=== PATIENT | male | born 1980 | race Caucasian/White ===

== ENCOUNTER 2020-03-19 16:00 | Inpatient (IN) | payer SELFPAY ==
[~2020-03-19] VITALS: Ht 172.7 cm; Wt 109.3 kg
[2020-03-19] VITALS (17 sets, daily range): BP systolic 98–161; BP diastolic 46–121
[2020-03-19 16:46] LABS: BASOPHILS % 0.3 % (0.0-2.0); HEMATOCRIT. 42.1 % (42.0-52.0); HEMOGLOBIN. 14.5 g/dL (14.0-18.0); LYMPHOCYTES % 10.3 % (20.0-50.0); MEAN CORPUSCULAR HEMOGLOBIN 29.9 pg (28.0-32.0); MEAN CORPUSCULAR VOLUME 86.6 fL (80.0-94.0); MEAN PLATELET VOLUME 8.8 fl (7.4-10.4); MONOCYTES % 3.1 % (2.0-8.0); NEUTROPHILS % 86.3 % (40.0-76.0); PLATELET 204 x1000/uL (130-400); RED BLOOD CELL COUNT 4.86 mill/uL (4.7-6.1)
[2020-03-19 16:50] LABS: CHLORIDE 101 mEq/L (98-107)
[2020-03-19 16:59] LABS: D-DIMER 0.8 mg/L FEU (<0.50); INR 0.9; PROTHROMBIN TIME 10.1 sec (9.6-11.0)
[2020-03-19] MEDS ORDERED: ENOXAPARIN 100MG/ML SYR SUBCUT ONE (17:00)
[2020-03-19] MEDS ORDERED: ASPIRIN 325MG EC TABLET PO ONE (17:15)
[2020-03-19] MEDS ORDERED: AZITHROMYCIN 500 MG in DEXT 5% WATER 250 ML IV STA (17:21)
[2020-03-19] MEDS ORDERED: GUAIFENESIN 200MG/10ML SUGAR FREE UDC PO PRN (17:30)
[2020-03-19] MEDS ORDERED: LORAZEPAM 0.5MG TABLET PO PRN (17:30)
[2020-03-19] MEDS ORDERED: NITROGLYCERIN 0.4MG TABLET SL SL PRN (17:30)
[2020-03-19] MEDS ORDERED: CLONIDINE 0.1MG TABLET PO PRN (17:30)
[2020-03-19] MEDS ORDERED: TRAMADOL 50MG TABLET PO PRN (17:30)
[2020-03-19] MEDS ORDERED: CEFTRIAXONE 1 G PREMIX 50 ML IV ONE (17:30)
[2020-03-19] MEDS ORDERED: DOCUSATE SODIUM 100MG CAPSULE PO PRN (17:30)
[2020-03-19] MEDS ORDERED: ONDANSETRON HCL 4MG/2ML INJ IV PRN (17:30)
[2020-03-19] MEDS ORDERED: MAGNESIUM/ALUMINUM HYDROXIDE/SIMETHICONE 30ML UDC PO PRN (17:30)
[2020-03-19] MEDS ORDERED: IPRATROPIUM/ALBUTEROL 0.5-3(2.5)MG/3ML NEB ORI PRN (17:30)
[2020-03-19] MEDS ORDERED: POTASSIUM CHLORIDE 20MEQ TABLET SR PO NR (17:50)
[2020-03-19] MEDS ORDERED: GUAIFENESIN/DM 600MG/30MG ER TAB 12HR PO SCH (17:51)
[2020-03-19] MEDS: SODIUM CHLORIDE 0.9% 1,000 ML IV SCH (18:11)
[2020-03-19 18:16] LABS: BG BASE EXCESS 1.3 mmol/L (-2.0-2.0); BG CARBOXYHEMOGLOBIN 0.6 % (0.5-1.5); BG DEOXYHEMOGLOBIN 10.1 % (0.0-5.0); BG HCO3 ACT 25.5 mmol/L (22.0-26.0); BG METHEMOGLOBIN 0.1 % (0.0-1.5); BG OXYGEN SATURATION 89.8 % (92.0-98.5); BG OXYHEMOGLOBIN 89.2 % (94.0-97.0); BG PCO2 38.8 mmHg (35.0-45.0); BG PH 7.435 (7.350-7.450); BG PO2 57.8 mmHg (75.0-100.0); BG SAMPLE SITE RIGHT BRACHIAL; BG TOTAL HEMOGLOBIN 14.8 g/dL (12.0-18.0); BG VENT MODE MASK - NRB
[2020-03-19 19:25] LABS: CLARITY URINE CLEAR (CLEAR); COLOR URINE YELLOW (YELLOW); KETONES URINE NEGATIVE (NEGATIVE); LEUKOCYTE ESTERASE URINE NEGATIVE (NEGATIVE); NITRITE URINE NEGATIVE (NEGATIVE); OCCULT BLOOD URINE 2+ (NEGATIVE); PROTEIN URINE 2+ (NEGATIVE); SPECIFIC GRAVITY URINE 1.012 (1.005-1.030)
[2020-03-19 19:26] LABS: *AMPHETAMINES SCREEN URINE NEGATIVE (NEGATIVE); *BARBITURATES SCREEN URINE NEGATIVE (NEGATIVE)
[2020-03-19 19:27] LABS: *BENZODIAZEPINES SCREEN URINE NEGATIVE (NEGATIVE); *COCAINE SCREEN URINE NEGATIVE (NEGATIVE); METHADONE URINE SCREEN NEGATIVE (NEGATIVE); OPIATES URINE SCREEN NEGATIVE (NEGATIVE); PHENCYCLIDINE URINE SCREEN NEGATIVE (NEGATIVE)
[2020-03-19 19:28] LABS: CANNABINOID URINE SCREEN NEGATIVE (NEGATIVE)
[2020-03-19] MEDS ORDERED: ALBUTEROL 6.7GM HFA INHALER ORI PRN (20:15)
[2020-03-19] MEDS ORDERED: ZOLPIDEM TARTRATE 5MG TABLET PO PRN (21:00)
[2020-03-19] MEDS: GUAIFENESIN/DM 600MG/30MG ER TAB 12HR PO SCH (21:00)
[2020-03-19] MEDS: FAMOTIDINE 20MG TABLET PO SCH (21:00)
[2020-03-19] MEDS: ASCORBIC ACID 500 MG TABLET PO SCH (21:00)
[2020-03-19 21:26] LABS: BG BASE EXCESS -0.1 mmol/L (-2.0-2.0); BG CARBOXYHEMOGLOBIN 0.3 % (0.5-1.5); BG DEOXYHEMOGLOBIN 74.8 % (0.0-5.0); BG FRACTION INSPIRED OXYGEN 100; BG HCO3 ACT 25.9 mmol/L (22.0-26.0); BG METHEMOGLOBIN 1.6 % (0.0-1.5); BG OXYGEN SATURATION 23.8 % (92.0-98.5); BG OXYHEMOGLOBIN 23.3 % (94.0-97.0); BG PCO2 47.3 mmHg (35.0-45.0); BG PH 7.357 (7.350-7.450); BG PO2 < 30.3 mmHg (75.0-100.0); BG SAMPLE SITE RIGHT RADIAL; BG TOTAL HEMOGLOBIN 15.6 g/dL (12.0-18.0); BG VENT MODE MASK - NRB
[2020-03-19] MEDS: METHYLPREDNISOLONE SOD SUCC 40 MG/ML VIAL IV SCH (21:30)
[2020-03-19 23:24] LABS: BG BASE EXCESS -0.4 mmol/L (-2.0-2.0); BG CARBOXYHEMOGLOBIN 0.2 % (0.5-1.5); BG DEOXYHEMOGLOBIN 19.9 % (0.0-5.0); BG FRACTION INSPIRED OXYGEN 100; BG HCO3 ACT 24.3 mmol/L (22.0-26.0); BG METHEMOGLOBIN 0.2 % (0.0-1.5); BG OXYHEMOGLOBIN 79.7 % (94.0-97.0); BG PCO2 40.3 mmHg (35.0-45.0); BG PH 7.398 (7.350-7.450); BG PO2 45.8 mmHg (75.0-100.0); BG SAMPLE SITE RIGHT BRACHIAL; BG TOTAL HEMOGLOBIN 15.1 g/dL (12.0-18.0); BG VENT MODE MASK - NRB
[2020-03-19 23:26] LABS: CREATINE KINASE MB FRACTION 30.8 ng/mL (0.5-3.6)
[2020-03-20] VITALS (87 sets, daily range): BP systolic 81–172; BP diastolic 28–110
[2020-03-20] MEDS ORDERED: MIDAZOLAM HCL 2 MG/2 ML VIAL IV NR ×2 (00:30→01:15)
[2020-03-20] MEDS ORDERED: FENTANYL CITRATE/PF 50MCG/ML 2ML VIAL IV NR (00:30)
[2020-03-20] MEDS: PROPOFOL 10MG/ML 100ML 100 ML IV PRN ×4 (00:50→08:13)
[2020-03-20] MEDS: MIDAZOLAM HCL 100 MG in DEXT 5% WATER 80 ML IV PRN ×2 (01:51→13:58)
[2020-03-20] MEDS: ACETAMINOPHEN 325MG TABLET PO PRN (01:59)
[2020-03-20 02:13] LABS: BG BASE EXCESS -3.7 mmol/L (-2.0-2.0); BG CARBOXYHEMOGLOBIN 0.2 % (0.5-1.5); BG DEOXYHEMOGLOBIN 21.6 % (0.0-5.0); BG FRACTION INSPIRED OXYGEN 100; BG HCO3 ACT 26.1 mmol/L (22.0-26.0); BG METHEMOGLOBIN 0.3 % (0.0-1.5); BG OXYGEN SATURATION 78.3 % (92.0-98.5); BG OXYHEMOGLOBIN 77.9 % (94.0-97.0); BG PCO2 68.9 mmHg (35.0-45.0); BG PH 7.197 (7.350-7.450); BG PO2 51.1 mmHg (75.0-100.0); BG SAMPLE SITE RIGHT BRACHIAL; BG TIDAL VOLUME(mL) 550 mL; BG TOTAL HEMOGLOBIN 15.4 g/dL (12.0-18.0); BG VENT MODE VENT - A/C; BG VENT RATE 20 set
[2020-03-20] MEDS: SODIUM CHLORIDE 0.9% 1,000 ML IV SCH ×2 (03:30→13:50)
[2020-03-20 05:13] LABS: BG BASE EXCESS -1.7 mmol/L (-2.0-2.0); BG CARBOXYHEMOGLOBIN 0.1 % (0.5-1.5); BG DEOXYHEMOGLOBIN 14.2 % (0.0-5.0); BG FRACTION INSPIRED OXYGEN 100; BG HCO3 ACT 24.7 mmol/L (22.0-26.0); BG METHEMOGLOBIN 0.1 % (0.0-1.5); BG OXYGEN SATURATION 85.8 % (92.0-98.5); BG OXYHEMOGLOBIN 85.6 % (94.0-97.0); BG PCO2 48.1 mmHg (35.0-45.0); BG PH 7.328 (7.350-7.450); BG PO2 53.4 mmHg (75.0-100.0); BG SAMPLE SITE LEFT RADIAL; BG TIDAL VOLUME(mL) 550 mL; BG TOTAL HEMOGLOBIN 14.5 g/dL (12.0-18.0); BG VENT MODE VENT - A/C; BG VENT RATE 26 set
[2020-03-20] MEDS: METHYLPREDNISOLONE SOD SUCC 40 MG/ML VIAL IV SCH ×3 (06:00→21:16)
[2020-03-20 07:07] LABS: CREATINE KINASE MB FRACTION 26.1 ng/mL (0.5-3.6)
[2020-03-20 07:34] LABS: CHLORIDE 107 mEq/L (98-107)
[2020-03-20] MEDS ORDERED: ASPIRIN 325MG EC TABLET PO SCH (09:00)
[2020-03-20] MEDS ORDERED: NOREPINEPHRINE 32 MG in DEXT 5% WATER 468 ML IV PRN (09:15)
[2020-03-20] MEDS ORDERED: NOREPINEPHRINE 8 MG in DEXT 5% WATER 242 ML IV PRN (09:30)
[2020-03-20] MEDS: GUAIFENESIN/DM 600MG/30MG ER TAB 12HR PO SCH ×2 (10:18→21:16)
[2020-03-20] MEDS: ASPIRIN 325MG TABLET NG SCH (10:18)
[2020-03-20] MEDS: FAMOTIDINE 20MG TABLET PO SCH ×2 (10:18→21:16)
[2020-03-20] MEDS: ZINC SULFATE 220 MG ( 50 ) CAPSULE PO SCH (10:18)
[2020-03-20] MEDS: ENOXAPARIN 120MG/0.8ML SYR SUBCUT SCH ×2 (10:19→21:16)
[2020-03-20] MEDS: ASCORBIC ACID 500 MG TABLET PO SCH ×2 (10:19→21:16)
[2020-03-20] MEDS: FENTANYL CITRATE/PF 1,000 MCG in SODIUM CHLORIDE 0.9% 80 ML IV PRN ×2 (10:43→17:05)
[2020-03-20] MEDS ORDERED: LIDOCAINE HCL 1% 20ML VIAL (Pyxis) INJ ONE (12:42)
[2020-03-20] MEDS ORDERED: CEFTRIAXONE 1 G PREMIX 50 ML IV SCH (13:00)
[2020-03-20 13:56] LABS: BG BASE EXCESS -1.6 mmol/L (-2.0-2.0); BG DEOXYHEMOGLOBIN 23.7 % (0.0-5.0); BG FRACTION INSPIRED OXYGEN 100; BG OXYGEN SATURATION 76.3 % (92.0-98.5); BG OXYHEMOGLOBIN 76.3 % (94.0-97.0); BG PCO2 49.9 mmHg (35.0-45.0); BG PH 7.318 (7.350-7.450); BG PO2 43.3 mmHg (75.0-100.0); BG SAMPLE SITE LEFT RADIAL; BG TIDAL VOLUME(mL) 450 mL; BG VENT MODE VENT - A/C; BG VENT RATE 30 set
[2020-03-20] MEDS: AZITHROMYCIN 250 MG in DEXT 5% WATER 250 ML IV SCH (14:36)
[2020-03-20] MEDS ORDERED: FUROSEMIDE 40MG/4ML VIAL IVP NR (15:00)
[2020-03-20] MEDS: MONTELUKAST SODIUM 10MG TABLET PO SCH (16:24)
[2020-03-20] MEDS ORDERED: AZITHROMYCIN 500 MG in DEXT 5% WATER 250 ML IV SCH (17:30)
[2020-03-20] MEDS: FENTANYL CITRATE/PF 2,500 MCG in SODIUM CHLORIDE 0.9% 200 ML IV PRN (22:17)
[2020-03-21] VITALS (71 sets, daily range): BP systolic 113–140; BP diastolic 61–79
[2020-03-21] MEDS: MIDAZOLAM HCL 100 MG in DEXT 5% WATER 80 ML IV PRN ×3 (00:11→19:47)
[2020-03-21] MEDS: FENTANYL CITRATE/PF 2,500 MCG in SODIUM CHLORIDE 0.9% 200 ML IV PRN ×3 (05:31→22:40)
[2020-03-21 05:59] LABS: HEMATOCRIT. 41.6 % (42.0-52.0); HEMOGLOBIN. 13.8 g/dL (14.0-18.0); MEAN CORPUSCULAR HEMOGLOBIN 29.5 pg (28.0-32.0); MEAN CORPUSCULAR VOLUME 88.5 fL (80.0-94.0); MEAN PLATELET VOLUME 9.7 fl (7.4-10.4); PLATELET 264 x1000/uL (130-400); RED CELL DISTRIBUTION WIDTH 13.3 % (11.6-14.6)
[2020-03-21 06:13] LABS: CHLORIDE 105 mEq/L (98-107)
[2020-03-21] MEDS: METHYLPREDNISOLONE SOD SUCC 40 MG/ML VIAL IV SCH ×3 (06:16→20:49)
[2020-03-21 06:32] LABS: CREATINE KINASE 3634 IU/L (39-308)
[2020-03-21] MEDS: ASPIRIN 325MG TABLET NG SCH (08:19)
[2020-03-21] MEDS: ASCORBIC ACID 500 MG TABLET PO SCH ×2 (08:19→20:52)
[2020-03-21 08:20] LABS: PLATELET ESTIMATE NORMAL
[2020-03-21] MEDS: FAMOTIDINE 20MG TABLET PO SCH ×2 (08:20→20:49)
[2020-03-21] MEDS: ZINC SULFATE 220 MG ( 50 ) CAPSULE PO SCH (08:20)
[2020-03-21] MEDS: GUAIFENESIN/DM 600MG/30MG ER TAB 12HR PO SCH ×2 (08:20→20:49)
[2020-03-21] MEDS: ENOXAPARIN 120MG/0.8ML SYR SUBCUT SCH ×2 (08:21→20:50)
[2020-03-21 08:26] LABS: BG BASE EXCESS 1.2 mmol/L (-2.0-2.0); BG CARBOXYHEMOGLOBIN 0.3 % (0.5-1.5); BG DEOXYHEMOGLOBIN 7.5 % (0.0-5.0); BG FRACTION INSPIRED OXYGEN 100; BG HCO3 ACT 28.4 mmol/L (22.0-26.0); BG METHEMOGLOBIN 0.1 % (0.0-1.5); BG OXYGEN SATURATION 92.5 % (92.0-98.5); BG OXYHEMOGLOBIN 92.1 % (94.0-97.0); BG PCO2 55.8 mmHg (35.0-45.0); BG PH 7.325 (7.350-7.450); BG PO2 66.5 mmHg (75.0-100.0); BG SAMPLE SITE RIGHT RADIAL; BG TIDAL VOLUME(mL) 450 mL; BG TOTAL HEMOGLOBIN 14.1 g/dL (12.0-18.0); BG VENT MODE VENT - A/C; BG VENT RATE 30 set
[2020-03-21] MEDS ORDERED: ALBUTEROL 6.7GM HFA INHALER ORI SCH (13:00)
[2020-03-21] MEDS: CEFTRIAXONE 1 G PREMIX 50 ML IV SCH (13:32)
[2020-03-21] MEDS: PROPOFOL 10MG/ML 100ML 100 ML IV PRN ×4 (14:48→21:37)
[2020-03-21] MEDS: AZITHROMYCIN 250 MG in DEXT 5% WATER 250 ML IV SCH (15:09)
[2020-03-21] MEDS: ALBUTEROL 6.7GM HFA INHALER ORI SCH (16:10)
[2020-03-21] MEDS: MONTELUKAST SODIUM 10MG TABLET PO SCH (16:46)
[2020-03-22] VITALS (82 sets, daily range): BP systolic 100–129; BP diastolic 50–75
[2020-03-22] MEDS: PROPOFOL 10MG/ML 100ML 100 ML IV PRN ×9 (00:42→23:10)
[2020-03-22] MEDS: MIDAZOLAM HCL 100 MG in DEXT 5% WATER 80 ML IV PRN ×3 (03:09→21:23)
[2020-03-22] MEDS: ALBUTEROL 6.7GM HFA INHALER ORI SCH ×6 (04:10→21:00)
[2020-03-22] MEDS: METHYLPREDNISOLONE SOD SUCC 40 MG/ML VIAL IV SCH (05:55)
[2020-03-22] MEDS: FENTANYL CITRATE/PF 2,500 MCG in SODIUM CHLORIDE 0.9% 200 ML IV PRN ×3 (05:57→22:41)
[2020-03-22 05:59] LABS: MEAN CORPUSCULAR VOLUME 89.7 fL (80.0-94.0); MEAN PLATELET VOLUME 9.1 fl (7.4-10.4); PLATELET 314 x1000/uL (130-400); RED BLOOD CELL COUNT 4.35 mill/uL (4.7-6.1); RED CELL DISTRIBUTION WIDTH 13.3 % (11.6-14.6)
[2020-03-22 06:35] LABS: CHLORIDE 106 mEq/L (98-107)
[2020-03-22 08:57] LABS: BG BASE EXCESS 3.9 mmol/L (-2.0-2.0); BG CARBOXYHEMOGLOBIN 0.3 % (0.5-1.5); BG DEOXYHEMOGLOBIN 0.6 % (0.0-5.0); BG FRACTION INSPIRED OXYGEN 100; BG HCO3 ACT 32.8 mmol/L (22.0-26.0); BG METHEMOGLOBIN 0.3 % (0.0-1.5); BG OXYGEN SATURATION 99.4 % (92.0-98.5); BG OXYHEMOGLOBIN 98.8 % (94.0-97.0); BG PH 7.282 (7.350-7.450); BG PO2 297.1 mmHg (75.0-100.0); BG SAMPLE SITE LEFT RADIAL; BG TIDAL VOLUME(mL) 400 mL; BG TOTAL HEMOGLOBIN 13.4 g/dL (12.0-18.0); BG VENT MODE VENT - PCV; BG VENT RATE 30 set
[2020-03-22] MEDS ORDERED: SODIUM POLYSTYRENE SULFONATE 15 G/60 ML BOT PO NR (09:30)
[2020-03-22] MEDS: ASCORBIC ACID 500 MG TABLET PO SCH ×2 (09:43→20:26)
[2020-03-22] MEDS: ASPIRIN 325MG TABLET NG SCH (09:43)
[2020-03-22] MEDS: ZINC SULFATE 220 MG ( 50 ) CAPSULE PO SCH (09:43)
[2020-03-22] MEDS: ENOXAPARIN 120MG/0.8ML SYR SUBCUT SCH ×2 (09:43→20:27)
[2020-03-22] MEDS: FAMOTIDINE 20MG TABLET PO SCH ×2 (09:43→20:20)
[2020-03-22] MEDS: GUAIFENESIN/DM 600MG/30MG ER TAB 12HR PO SCH ×2 (09:44→20:20)
[2020-03-22 12:06] LABS: PLATELET ESTIMATE NORMAL
[2020-03-22] MEDS: CEFTRIAXONE 1 G PREMIX 50 ML IV SCH (12:32)
[2020-03-22 14:42] LABS: BG CARBOXYHEMOGLOBIN 0.3 % (0.5-1.5); BG DEOXYHEMOGLOBIN 0.7 % (0.0-5.0); BG FRACTION INSPIRED OXYGEN 100; BG HCO3 ACT 29.1 mmol/L (22.0-26.0); BG METHEMOGLOBIN 0.3 % (0.0-1.5); BG OXYGEN SATURATION 99.3 % (92.0-98.5); BG OXYHEMOGLOBIN 98.7 % (94.0-97.0); BG PCO2 56.8 mmHg (35.0-45.0); BG PH 7.328 (7.350-7.450); BG PO2 398.1 mmHg (75.0-100.0); BG SAMPLE SITE RIGHT RADIAL; BG TIDAL VOLUME(mL) 450 mL; BG TOTAL HEMOGLOBIN 13.1 g/dL (12.0-18.0); BG VENT MODE VENT - PCV; BG VENT RATE 30 set
[2020-03-22] MEDS: AZITHROMYCIN 250 MG in DEXT 5% WATER 250 ML IV SCH (14:56)
[2020-03-22] MEDS: MONTELUKAST SODIUM 10MG TABLET PO SCH (17:27)
[2020-03-23] VITALS (86 sets, daily range): BP systolic 111–144; BP diastolic 57–79
[2020-03-23] MEDS: PROPOFOL 10MG/ML 100ML 100 ML IV PRN ×8 (02:27→22:00)
[2020-03-23] MEDS: ALBUTEROL 6.7GM HFA INHALER ORI SCH ×6 (04:48→20:40)
[2020-03-23 05:50] LABS: HEMATOCRIT. 36.3 % (42.0-52.0); HEMOGLOBIN. 12.3 g/dL (14.0-18.0); MEAN CORPUSCULAR HEMOGLOBIN 30.3 pg (28.0-32.0); MEAN CORPUSCULAR VOLUME 89.8 fL (80.0-94.0); MEAN PLATELET VOLUME 8.9 fl (7.4-10.4); PLATELET 299 x1000/uL (130-400); RED BLOOD CELL COUNT 4.05 mill/uL (4.7-6.1); RED CELL DISTRIBUTION WIDTH 13.2 % (11.6-14.6)
[2020-03-23 05:58] LABS: CHLORIDE 108 mEq/L (98-107)
[2020-03-23 06:21] LABS: CREATINE KINASE 1051 IU/L (39-308)
[2020-03-23] MEDS: FENTANYL CITRATE/PF 2,500 MCG in SODIUM CHLORIDE 0.9% 200 ML IV PRN ×3 (08:06→23:31)
[2020-03-23] MEDS: ASPIRIN 325MG TABLET NG SCH (08:09)
[2020-03-23] MEDS: ZINC SULFATE 220 MG ( 50 ) CAPSULE PO SCH (08:09)
[2020-03-23] MEDS: ASCORBIC ACID 500 MG TABLET PO SCH ×2 (08:09→20:21)
[2020-03-23] MEDS: GUAIFENESIN/DM 600MG/30MG ER TAB 12HR PO SCH ×2 (08:09→20:21)
[2020-03-23] MEDS: FAMOTIDINE 20MG TABLET PO SCH ×2 (08:10→20:21)
[2020-03-23] MEDS: ENOXAPARIN 120MG/0.8ML SYR SUBCUT SCH ×2 (08:11→20:25)
[2020-03-23] MEDS: MIDAZOLAM HCL 100 MG in DEXT 5% WATER 80 ML IV PRN ×2 (08:20→13:59)
[2020-03-23 08:29] LABS: PLATELET ESTIMATE NORMAL
[2020-03-23 08:43] LABS: BG BASE EXCESS 6.9 mmol/L (-2.0-2.0); BG CARBOXYHEMOGLOBIN 0.3 % (0.5-1.5); BG DEOXYHEMOGLOBIN 1.9 % (0.0-5.0); BG FRACTION INSPIRED OXYGEN 80; BG HCO3 ACT 33.1 mmol/L (22.0-26.0); BG METHEMOGLOBIN 0.3 % (0.0-1.5); BG OXYGEN SATURATION 98.1 % (92.0-98.5); BG OXYHEMOGLOBIN 97.5 % (94.0-97.0); BG PCO2 54.1 mmHg (35.0-45.0); BG PH 7.404 (7.350-7.450); BG PO2 123.6 mmHg (75.0-100.0); BG SAMPLE SITE RIGHT RADIAL; BG TIDAL VOLUME(mL) 450 mL; BG TOTAL HEMOGLOBIN 12.7 g/dL (12.0-18.0); BG VENT MODE VENT - PCV; BG VENT RATE 30 set
[2020-03-23] MEDS ORDERED: METHYLPREDNISOLONE SOD SUCC 40 MG/ML VIAL IV SCH (09:00)
[2020-03-23] MEDS ORDERED: DEXTROSE 50% WATER 50ML SYRINGE IV PRN ×2 (09:30)
[2020-03-23] MEDS: BLOOD SUGAR DIAGNOSTIC STRIP TEST SCH ×3 (11:22→23:30)
[2020-03-23] MEDS: CEFTRIAXONE 1,000 MG in DEXTROSE 5% WATER 50 ML IV SCH (12:11)
[2020-03-23] MEDS: INSULIN LISPRO 100 UNITS/ML SUBCUT SCH ×3 (12:12→23:42)
[2020-03-23] MEDS: ACETAMINOPHEN 325MG TABLET PO PRN (12:34)
[2020-03-23] MEDS: AZITHROMYCIN 250 MG in DEXT 5% WATER 250 ML IV SCH (13:39)
[2020-03-23] MEDS: MONTELUKAST SODIUM 10MG TABLET PO SCH (17:08)
[2020-03-23] MEDS: METHYLPREDNISOLONE SOD SUCC 40 MG/ML VIAL IV SCH (20:22)
[2020-03-24] VITALS (96 sets, daily range): BP systolic 84–150; BP diastolic 57–73
[2020-03-24] MEDS: ACETAMINOPHEN 325MG TABLET PO PRN ×2 (00:02→15:46)
[2020-03-24] MEDS: MIDAZOLAM HCL 100 MG in DEXT 5% WATER 80 ML IV PRN ×3 (00:31→20:50)
[2020-03-24] MEDS: ALBUTEROL 6.7GM HFA INHALER ORI SCH ×6 (00:50→21:06)
[2020-03-24] MEDS: PROPOFOL 10MG/ML 100ML 100 ML IV PRN ×4 (00:54→10:08)
[2020-03-24 05:23] LABS: BASOPHILS % 0.3 % (0.0-2.0); EOSINOPHILS % 0.3 % (0.0-5.0); HEMATOCRIT. 35.5 % (42.0-52.0); HEMOGLOBIN. 12.2 g/dL (14.0-18.0); MEAN CORPUSCULAR HEMOGLOBIN 30.8 pg (28.0-32.0); MEAN CORPUSCULAR VOLUME 89.9 fL (80.0-94.0); MEAN PLATELET VOLUME 9.1 fl (7.4-10.4); MONOCYTES % 2.5 % (2.0-8.0); NEUTROPHILS % 88.9 % (40.0-76.0); PLATELET 279 x1000/uL (130-400); RED BLOOD CELL COUNT 3.95 mill/uL (4.7-6.1); RED CELL DISTRIBUTION WIDTH 13.5 % (11.6-14.6)
[2020-03-24] MEDS: BLOOD SUGAR DIAGNOSTIC STRIP TEST SCH ×4 (05:36→23:54)
[2020-03-24] MEDS: INSULIN LISPRO 100 UNITS/ML SUBCUT SCH ×3 (05:55→18:04)
[2020-03-24] MEDS: FENTANYL CITRATE/PF 2,500 MCG in SODIUM CHLORIDE 0.9% 200 ML IV PRN ×2 (08:31→17:37)
[2020-03-24] MEDS: ASCORBIC ACID 500 MG TABLET PO SCH ×2 (08:31→20:23)
[2020-03-24] MEDS: FAMOTIDINE 20MG TABLET PO SCH ×2 (08:31→20:23)
[2020-03-24] MEDS: GUAIFENESIN/DM 600MG/30MG ER TAB 12HR PO SCH ×2 (08:31→20:23)
[2020-03-24] MEDS: ASPIRIN 325MG TABLET NG SCH (08:31)
[2020-03-24] MEDS: METHYLPREDNISOLONE SOD SUCC 40 MG/ML VIAL IV SCH ×2 (08:31→20:23)
[2020-03-24] MEDS: ENOXAPARIN 120MG/0.8ML SYR SUBCUT SCH ×2 (08:32→20:24)
[2020-03-24] MEDS: ZINC SULFATE 220 MG ( 50 ) CAPSULE PO SCH (08:32)
[2020-03-24 09:14] LABS: CHLORIDE 105 mEq/L (98-107)
[2020-03-24 09:54] LABS: BG BASE EXCESS 6.2 mmol/L (-2.0-2.0); BG CARBOXYHEMOGLOBIN 0.2 % (0.5-1.5); BG DEOXYHEMOGLOBIN 8.6 % (0.0-5.0); BG FRACTION INSPIRED OXYGEN 60; BG HCO3 ACT 32.3 mmol/L (22.0-26.0); BG METHEMOGLOBIN 0.7 % (0.0-1.5); BG OXYGEN SATURATION 91.3 % (92.0-98.5); BG OXYHEMOGLOBIN 90.5 % (94.0-97.0); BG PCO2 52.3 mmHg (35.0-45.0); BG PH 7.408 (7.350-7.450); BG SAMPLE SITE RIGHT RADIAL; BG TIDAL VOLUME(mL) 450 mL; BG TOTAL HEMOGLOBIN 13.4 g/dL (12.0-18.0); BG VENT MODE VENT - PCV; BG VENT RATE 30 set
[2020-03-24] MEDS: CEFTRIAXONE 1,000 MG in DEXTROSE 5% WATER 50 ML IV SCH (12:10)
[2020-03-24] MEDS: MONTELUKAST SODIUM 10MG TABLET PO SCH (16:32)
[2020-03-25] VITALS (96 sets, daily range): BP systolic 112–136; BP diastolic 59–80
[2020-03-25] MEDS: INSULIN LISPRO 100 UNITS/ML SUBCUT SCH ×5 (00:43→23:20)
[2020-03-25] MEDS: FENTANYL CITRATE/PF 2,500 MCG in SODIUM CHLORIDE 0.9% 200 ML IV PRN ×3 (01:39→18:47)
[2020-03-25] MEDS: BLOOD SUGAR DIAGNOSTIC STRIP TEST SCH ×3 (05:45→18:00)
[2020-03-25] MEDS: MIDAZOLAM HCL 100 MG in DEXT 5% WATER 80 ML IV PRN ×2 (07:53→18:46)
[2020-03-25] MEDS: ASCORBIC ACID 500 MG TABLET PO SCH ×2 (09:00→20:14)
[2020-03-25] MEDS: ENOXAPARIN 120MG/0.8ML SYR SUBCUT SCH ×2 (09:00→20:14)
[2020-03-25] MEDS: GUAIFENESIN/DM 600MG/30MG ER TAB 12HR PO SCH ×2 (09:26→20:14)
[2020-03-25] MEDS: METHYLPREDNISOLONE SOD SUCC 40 MG/ML VIAL IV SCH ×2 (09:27→20:14)
[2020-03-25] MEDS: ASPIRIN 325MG TABLET NG SCH (09:27)
[2020-03-25] MEDS: ACETAMINOPHEN 325MG TABLET PO PRN ×2 (09:27→18:26)
[2020-03-25] MEDS: FAMOTIDINE 20MG TABLET PO SCH ×2 (09:27→20:14)
[2020-03-25] MEDS: ZINC SULFATE 220 MG ( 50 ) CAPSULE PO SCH (09:28)
[2020-03-25 09:45] LABS: BG BASE EXCESS 6.9 mmol/L (-2.0-2.0); BG DEOXYHEMOGLOBIN 4.1 % (0.0-5.0); BG FRACTION INSPIRED OXYGEN 60; BG HCO3 ACT 32.7 mmol/L (22.0-26.0); BG METHEMOGLOBIN 0.2 % (0.0-1.5); BG OXYGEN SATURATION 95.9 % (92.0-98.5); BG OXYHEMOGLOBIN 95.7 % (94.0-97.0); BG PCO2 51.8 mmHg (35.0-45.0); BG PH 7.418 (7.350-7.450); BG PO2 81.7 mmHg (75.0-100.0); BG SAMPLE SITE RIGHT BRACHIAL; BG TIDAL VOLUME(mL) 450 mL; BG TOTAL HEMOGLOBIN 12.5 g/dL (12.0-18.0); BG VENT MODE PRVC; BG VENT RATE 30 set
[2020-03-25] MEDS: CEFTRIAXONE 1,000 MG in DEXTROSE 5% WATER 50 ML IV SCH (12:56)
[2020-03-25] MEDS: MONTELUKAST SODIUM 10MG TABLET PO SCH (18:26)
[2020-03-25] MEDS: ALBUTEROL 6.7GM HFA INHALER ORI SCH (20:25)
[2020-03-26] VITALS (96 sets, daily range): BP systolic 106–175; BP diastolic 54–94
[2020-03-26] MEDS: ALBUTEROL 6.7GM HFA INHALER ORI SCH ×5 (00:20→16:10)
[2020-03-26] MEDS: FENTANYL CITRATE/PF 2,500 MCG in SODIUM CHLORIDE 0.9% 200 ML IV PRN ×3 (03:35→19:00)
[2020-03-26] MEDS: BLOOD SUGAR DIAGNOSTIC STRIP TEST SCH ×4 (05:05→18:00)
[2020-03-26 05:15] LABS: HEMATOCRIT. 36.9 % (42.0-52.0); HEMOGLOBIN. 12.1 g/dL (14.0-18.0); MEAN CORPUSCULAR HEMOGLOBIN 29.7 pg (28.0-32.0); MEAN PLATELET VOLUME 8.7 fl (7.4-10.4); PLATELET 333 x1000/uL (130-400); RED BLOOD CELL COUNT 4.09 mill/uL (4.7-6.1); RED CELL DISTRIBUTION WIDTH 13.4 % (11.6-14.6)
[2020-03-26 05:19] LABS: CHLORIDE 109 mEq/L (98-107)
[2020-03-26 05:29] LABS: CREATINE KINASE 940 IU/L (39-308)
[2020-03-26] MEDS: INSULIN LISPRO 100 UNITS/ML SUBCUT SCH ×3 (05:38→18:00)
[2020-03-26] MEDS: MIDAZOLAM HCL 100 MG in DEXT 5% WATER 80 ML IV PRN ×2 (06:30→15:52)
[2020-03-26] MEDS: GUAIFENESIN/DM 600MG/30MG ER TAB 12HR PO SCH ×2 (08:16→20:48)
[2020-03-26] MEDS: METHYLPREDNISOLONE SOD SUCC 40 MG/ML VIAL IV SCH ×2 (08:16→20:48)
[2020-03-26] MEDS: ENOXAPARIN 120MG/0.8ML SYR SUBCUT SCH ×2 (08:16→20:50)
[2020-03-26] MEDS: FAMOTIDINE 20MG TABLET PO SCH ×2 (08:17→20:48)
[2020-03-26] MEDS: ZINC SULFATE 220 MG ( 50 ) CAPSULE PO SCH (08:17)
[2020-03-26] MEDS: ASCORBIC ACID 500 MG TABLET PO SCH ×2 (08:18→20:48)
[2020-03-26] MEDS: ACETAMINOPHEN 325MG TABLET PO PRN ×3 (08:18→21:23)
[2020-03-26] MEDS: ASPIRIN 325MG TABLET NG SCH (08:18)
[2020-03-26 10:07] LABS: BG BASE EXCESS 5.2 mmol/L (-2.0-2.0); BG CARBOXYHEMOGLOBIN 0.3 % (0.5-1.5); BG DEOXYHEMOGLOBIN 2.2 % (0.0-5.0); BG FRACTION INSPIRED OXYGEN 70; BG HCO3 ACT 31.3 mmol/L (22.0-26.0); BG METHEMOGLOBIN 0.1 % (0.0-1.5); BG OXYGEN SATURATION 97.8 % (92.0-98.5); BG OXYHEMOGLOBIN 97.4 % (94.0-97.0); BG PCO2 52.3 mmHg (35.0-45.0); BG PH 7.395 (7.350-7.450); BG PO2 104.6 mmHg (75.0-100.0); BG SAMPLE SITE RIGHT RADIAL; BG TIDAL VOLUME(mL) 450 mL; BG TOTAL HEMOGLOBIN 12.7 g/dL (12.0-18.0); BG VENT MODE PRVC; BG VENT RATE 30 set
[2020-03-26 12:57] LABS: PLATELET ESTIMATE NORMAL
[2020-03-26] MEDS: MONTELUKAST SODIUM 10MG TABLET PO SCH (17:00)
[2020-03-27] VITALS (96 sets, daily range): BP systolic 108–130; BP diastolic 57–82
[2020-03-27] MEDS: BLOOD SUGAR DIAGNOSTIC STRIP TEST SCH ×4 (00:45→18:00)
[2020-03-27] MEDS: ACETAMINOPHEN 325MG TABLET PO PRN ×2 (00:52→05:59)
[2020-03-27] MEDS: INSULIN LISPRO 100 UNITS/ML SUBCUT SCH ×4 (00:52→18:36)
[2020-03-27] MEDS: MIDAZOLAM HCL 100 MG in DEXT 5% WATER 80 ML IV PRN ×3 (01:00→16:11)
[2020-03-27] MEDS: FENTANYL CITRATE/PF 2,500 MCG in SODIUM CHLORIDE 0.9% 200 ML IV PRN ×2 (04:09→20:43)
[2020-03-27] MEDS: ALBUTEROL 6.7GM HFA INHALER ORI SCH ×4 (08:00→20:55)
[2020-03-27] MEDS: GUAIFENESIN/DM 600MG/30MG ER TAB 12HR PO SCH ×2 (08:27→20:44)
[2020-03-27] MEDS: METHYLPREDNISOLONE SOD SUCC 40 MG/ML VIAL IV SCH ×2 (08:27→20:55)
[2020-03-27] MEDS: ASPIRIN 325MG TABLET NG SCH (08:27)
[2020-03-27] MEDS: FAMOTIDINE 20MG TABLET PO SCH ×2 (08:28→20:55)
[2020-03-27] MEDS: ZINC SULFATE 220 MG ( 50 ) CAPSULE PO SCH (08:28)
[2020-03-27] MEDS: ASCORBIC ACID 500 MG TABLET PO SCH ×2 (08:28→20:55)
[2020-03-27] MEDS: ENOXAPARIN 120MG/0.8ML SYR SUBCUT SCH ×2 (08:29→20:54)
[2020-03-27 09:34] LABS: BG BASE EXCESS 2.3 mmol/L (-2.0-2.0); BG CARBOXYHEMOGLOBIN 0.3 % (0.5-1.5); BG DEOXYHEMOGLOBIN 2.2 % (0.0-5.0); BG FRACTION INSPIRED OXYGEN 70; BG HCO3 ACT 28.7 mmol/L (22.0-26.0); BG METHEMOGLOBIN 0.2 % (0.0-1.5); BG OXYGEN SATURATION 97.8 % (92.0-98.5); BG OXYHEMOGLOBIN 97.3 % (94.0-97.0); BG PCO2 52.5 mmHg (35.0-45.0); BG PH 7.356 (7.350-7.450); BG PO2 113.7 mmHg (75.0-100.0); BG SAMPLE SITE RIGHT RADIAL; BG TIDAL VOLUME(mL) 450 mL; BG TOTAL HEMOGLOBIN 12.8 g/dL (12.0-18.0); BG VENT MODE VENT - PCV; BG VENT RATE 30 set
[2020-03-27] MEDS: MONTELUKAST SODIUM 10MG TABLET PO SCH (17:00)
[2020-03-28] VITALS (92 sets, daily range): BP systolic 100–133; BP diastolic 39–93
[2020-03-28] MEDS: BLOOD SUGAR DIAGNOSTIC STRIP TEST SCH ×5 (00:25→23:19)
[2020-03-28] MEDS: ALBUTEROL 6.7GM HFA INHALER ORI SCH ×6 (00:25→15:40)
[2020-03-28] MEDS: INSULIN LISPRO 100 UNITS/ML SUBCUT SCH ×5 (00:26→23:21)
[2020-03-28] MEDS: MIDAZOLAM HCL 100 MG in DEXT 5% WATER 80 ML IV PRN ×3 (00:49→18:23)
[2020-03-28 06:16] LABS: BASOPHILS % 0.2 % (0.0-2.0); EOSINOPHILS % 0.3 % (0.0-5.0); HEMATOCRIT. 38.2 % (42.0-52.0); HEMOGLOBIN. 12.7 g/dL (14.0-18.0); LYMPHOCYTES % 9.2 % (20.0-50.0); MEAN CORPUSCULAR HEMOGLOBIN 29.5 pg (28.0-32.0); MEAN CORPUSCULAR VOLUME 88.7 fL (80.0-94.0); MEAN PLATELET VOLUME 9.5 fl (7.4-10.4); MONOCYTES % 4.6 % (2.0-8.0); NEUTROPHILS % 85.7 % (40.0-76.0); PLATELET 328 x1000/uL (130-400); RED BLOOD CELL COUNT 4.31 mill/uL (4.7-6.1); RED CELL DISTRIBUTION WIDTH 13.3 % (11.6-14.6)
[2020-03-28 06:39] LABS: CHLORIDE 105 mEq/L (98-107)
[2020-03-28 06:48] LABS: C REACTIVE PROTEIN QUANT 8.2 mg/L (0.0-3.0); CREATINE KINASE 393 IU/L (39-308)
[2020-03-28] MEDS ORDERED: FENTANYL CITRATE/PF 2,500 MCG in DEXT 5% WATER 200 ML IV PRN (08:45)
[2020-03-28 08:48] LABS: BG BASE EXCESS 2.8 mmol/L (-2.0-2.0); BG CARBOXYHEMOGLOBIN 0.3 % (0.5-1.5); BG DEOXYHEMOGLOBIN 1.3 % (0.0-5.0); BG FRACTION INSPIRED OXYGEN 60; BG HCO3 ACT 27.9 mmol/L (22.0-26.0); BG METHEMOGLOBIN 0.3 % (0.0-1.5); BG OXYGEN SATURATION 98.7 % (92.0-98.5); BG OXYHEMOGLOBIN 98.1 % (94.0-97.0); BG PCO2 45.1 mmHg (35.0-45.0); BG PO2 150.2 mmHg (75.0-100.0); BG SAMPLE SITE RIGHT RADIAL; BG TIDAL VOLUME(mL) 450 mL; BG TOTAL HEMOGLOBIN 12.7 g/dL (12.0-18.0); BG VENT MODE VENT - PCV; BG VENT RATE 30 set
[2020-03-28] MEDS: GUAIFENESIN/DM 600MG/30MG ER TAB 12HR PO SCH ×2 (09:00→19:43)
[2020-03-28] MEDS: ASCORBIC ACID 500 MG TABLET PO SCH ×2 (09:47→21:18)
[2020-03-28] MEDS: ASPIRIN 325MG TABLET NG SCH (09:47)
[2020-03-28] MEDS: FAMOTIDINE 20MG TABLET PO SCH ×2 (09:47→21:17)
[2020-03-28] MEDS: METHYLPREDNISOLONE SOD SUCC 40 MG/ML VIAL IV SCH (09:47)
[2020-03-28] MEDS: ENOXAPARIN 120MG/0.8ML SYR SUBCUT SCH ×2 (09:48→21:17)
[2020-03-28] MEDS: ZINC SULFATE 220 MG ( 50 ) CAPSULE PO SCH (09:55)
[2020-03-28] MEDS: ACETAMINOPHEN 650MG/20.3ML UDC NG PRN (13:15)
[2020-03-28] MEDS: MONTELUKAST SODIUM 10MG TABLET PO SCH (18:22)
[2020-03-29] VITALS (91 sets, daily range): BP systolic 108–143; BP diastolic 57–82
[2020-03-29] MEDS: ALBUTEROL 6.7GM HFA INHALER ORI SCH ×2 (00:25→20:35)
[2020-03-29] MEDS: MIDAZOLAM HCL 100 MG in DEXT 5% WATER 80 ML IV PRN ×3 (03:28→18:04)
[2020-03-29] MEDS: FENTANYL CITRATE/PF 2,500 MCG in SODIUM CHLORIDE 0.9% 200 ML IV PRN ×2 (05:28→18:50)
[2020-03-29] MEDS: BLOOD SUGAR DIAGNOSTIC STRIP TEST SCH ×3 (05:48→18:45)
[2020-03-29] MEDS: INSULIN LISPRO 100 UNITS/ML SUBCUT SCH ×3 (05:49→18:46)
[2020-03-29] MEDS: ASCORBIC ACID 500 MG TABLET PO SCH ×2 (08:08→20:36)
[2020-03-29] MEDS: ZINC SULFATE 220 MG ( 50 ) CAPSULE PO SCH (08:08)
[2020-03-29] MEDS: FAMOTIDINE 20MG TABLET PO SCH ×2 (08:08→20:36)
[2020-03-29] MEDS: GUAIFENESIN/DM 600MG/30MG ER TAB 12HR PO SCH ×2 (08:08→20:36)
[2020-03-29] MEDS: METHYLPREDNISOLONE SOD SUCC 40 MG/ML VIAL IV SCH (08:08)
[2020-03-29] MEDS: ASPIRIN 325MG TABLET NG SCH (08:08)
[2020-03-29] MEDS: ENOXAPARIN 120MG/0.8ML SYR SUBCUT SCH ×2 (08:09→20:36)
[2020-03-29 10:12] LABS: BG BASE EXCESS 4.7 mmol/L (-2.0-2.0); BG CARBOXYHEMOGLOBIN 0.1 % (0.5-1.5); BG DEOXYHEMOGLOBIN 1.5 % (0.0-5.0); BG FRACTION INSPIRED OXYGEN 55; BG HCO3 ACT 28.9 mmol/L (22.0-26.0); BG METHEMOGLOBIN 0.1 % (0.0-1.5); BG OXYGEN SATURATION 98.5 % (92.0-98.5); BG OXYHEMOGLOBIN 98.3 % (94.0-97.0); BG PCO2 41.5 mmHg (35.0-45.0); BG PH 7.461 (7.350-7.450); BG SAMPLE SITE RIGHT RADIAL; BG TIDAL VOLUME(mL) 450 mL; BG VENT MODE VENT- PRVC; BG VENT RATE 30 set
[2020-03-29 11:17] LABS: HEMATOCRIT. 36.9 % (42.0-52.0); HEMOGLOBIN. 12.4 g/dL (14.0-18.0); MEAN CORPUSCULAR HEMOGLOBIN 29.4 pg (28.0-32.0); MEAN CORPUSCULAR VOLUME 87.8 fL (80.0-94.0); MEAN PLATELET VOLUME 9.4 fl (7.4-10.4); PLATELET 294 x1000/uL (130-400); RED CELL DISTRIBUTION WIDTH 12.7 % (11.6-14.6)
[2020-03-29 11:59] LABS: CHLORIDE 105 mEq/L (98-107)
[2020-03-29 13:01] LABS: PLATELET ESTIMATE NORMAL
[2020-03-29] MEDS ORDERED: DOCUSATE SODIUM 100MG CAPSULE PO PRN (15:45)
[2020-03-29] MEDS ORDERED: DOCUSATE SODIUM SUGAR FREE 100MG/10ML UDC NG PRN (16:00)
[2020-03-29] MEDS: MONTELUKAST SODIUM 10MG TABLET PO SCH (16:10)
[2020-03-30] VITALS (59 sets, daily range): BP systolic 102–133; BP diastolic 62–82
[2020-03-30] MEDS: BLOOD SUGAR DIAGNOSTIC STRIP TEST SCH ×5 (00:14→23:34)
[2020-03-30] MEDS: MIDAZOLAM HCL 100 MG in DEXT 5% WATER 80 ML IV PRN ×3 (00:19→21:32)
[2020-03-30] MEDS: ALBUTEROL 6.7GM HFA INHALER ORI SCH ×7 (00:30→21:20)
[2020-03-30] MEDS: ACETAMINOPHEN 325MG TABLET PO PRN ×2 (04:07→20:59)
[2020-03-30] MEDS: FENTANYL CITRATE/PF 2,500 MCG in SODIUM CHLORIDE 0.9% 200 ML IV PRN ×2 (05:08→23:54)
[2020-03-30 06:06] LABS: CHLORIDE 104 mEq/L (98-107)
[2020-03-30 06:14] LABS: BASOPHILS % 0.3 % (0.0-2.0); EOSINOPHILS % 0.7 % (0.0-5.0); HEMATOCRIT. 36.4 % (42.0-52.0); HEMOGLOBIN. 12.1 g/dL (14.0-18.0); LYMPHOCYTES % 8.3 % (20.0-50.0); MEAN CORPUSCULAR HEMOGLOBIN 29.5 pg (28.0-32.0); MEAN CORPUSCULAR VOLUME 88.9 fL (80.0-94.0); MEAN PLATELET VOLUME 10.4 fl (7.4-10.4); MONOCYTES % 6.6 % (2.0-8.0); NEUTROPHILS % 84.1 % (40.0-76.0); PLATELET 296 x1000/uL (130-400); RED CELL DISTRIBUTION WIDTH 13.3 % (11.6-14.6)
[2020-03-30] MEDS: INSULIN LISPRO 100 UNITS/ML SUBCUT SCH ×5 (06:34→23:42)
[2020-03-30 08:45] LABS: BG BASE EXCESS 0.1 mmol/L (-2.0-2.0); BG CARBOXYHEMOGLOBIN 0.3 % (0.5-1.5); BG DEOXYHEMOGLOBIN 3.2 % (0.0-5.0); BG FRACTION INSPIRED OXYGEN 50; BG HCO3 ACT 24.9 mmol/L (22.0-26.0); BG METHEMOGLOBIN 0.3 % (0.0-1.5); BG OXYGEN SATURATION 96.8 % (92.0-98.5); BG OXYHEMOGLOBIN 96.2 % (94.0-97.0); BG PCO2 41.1 mmHg (35.0-45.0); BG PH 7.401 (7.350-7.450); BG PO2 88.3 mmHg (75.0-100.0); BG SAMPLE SITE RIGHT RADIAL; BG TIDAL VOLUME(mL) 450 mL; BG TOTAL HEMOGLOBIN 12.1 g/dL (12.0-18.0); BG VENT MODE VENT- PRVC; BG VENT RATE 26 set
[2020-03-30] MEDS: ASCORBIC ACID 500 MG TABLET PO SCH ×2 (08:48→23:56)
[2020-03-30] MEDS: ZINC SULFATE 220 MG ( 50 ) CAPSULE PO SCH (08:48)
[2020-03-30] MEDS: FAMOTIDINE 20MG TABLET PO SCH ×2 (08:48→20:59)
[2020-03-30] MEDS: ENOXAPARIN 120MG/0.8ML SYR SUBCUT SCH ×2 (08:48→20:54)
[2020-03-30] MEDS: GUAIFENESIN/DM 600MG/30MG ER TAB 12HR PO SCH ×2 (08:48→20:54)
[2020-03-30] MEDS: METHYLPREDNISOLONE SOD SUCC 40 MG/ML VIAL IV SCH (08:48)
[2020-03-30] MEDS: ASPIRIN 325MG TABLET NG SCH (08:48)
[2020-03-30] MEDS ORDERED: SODIUM CHLORIDE 0.9% IRRIG SOLUTION 1000ML IR ONE (09:00)
[2020-03-30] MEDS ORDERED: POTASSIUM CHLORIDE 20MEQ TABLET SR PO NR (09:15)
[2020-03-30] MEDS ORDERED: BISACODYL 10MG SUPP PR PRN (13:30)
[2020-03-30] MEDS: MONTELUKAST SODIUM 10MG TABLET PO SCH (17:00)
[2020-03-31] VITALS (61 sets, daily range): BP systolic 97–130; BP diastolic 61–83
[2020-03-31] MEDS: ALBUTEROL 6.7GM HFA INHALER ORI SCH ×3 (01:10→20:15)
[2020-03-31] MEDS: ACETAMINOPHEN 325MG TABLET PO PRN (05:04)
[2020-03-31 05:36] LABS: BASOPHILS % 0.2 % (0.0-2.0); EOSINOPHILS % 0.8 % (0.0-5.0); HEMOGLOBIN. 11.7 g/dL (14.0-18.0); MEAN CORPUSCULAR HEMOGLOBIN 29.5 pg (28.0-32.0); MEAN CORPUSCULAR VOLUME 88.4 fL (80.0-94.0); MEAN PLATELET VOLUME 10.3 fl (7.4-10.4); MONOCYTES % 6.8 % (2.0-8.0); NEUTROPHILS % 81.2 % (40.0-76.0); PLATELET 284 x1000/uL (130-400); RED BLOOD CELL COUNT 3.96 mill/uL (4.7-6.1); RED CELL DISTRIBUTION WIDTH 12.7 % (11.6-14.6)
[2020-03-31 05:48] LABS: CHLORIDE 105 mEq/L (98-107)
[2020-03-31] MEDS: INSULIN LISPRO 100 UNITS/ML SUBCUT SCH ×3 (06:00→17:32)
[2020-03-31] MEDS: BLOOD SUGAR DIAGNOSTIC STRIP TEST SCH ×4 (06:03→23:21)
[2020-03-31] MEDS: MIDAZOLAM HCL 100 MG in DEXT 5% WATER 80 ML IV PRN (06:27)
[2020-03-31 08:59] LABS: BG BASE EXCESS 4.2 mmol/L (-2.0-2.0); BG CARBOXYHEMOGLOBIN 0.6 % (0.5-1.5); BG DEOXYHEMOGLOBIN 3.3 % (0.0-5.0); BG FRACTION INSPIRED OXYGEN 50; BG METHEMOGLOBIN 0.1 % (0.0-1.5); BG OXYGEN SATURATION 96.7 % (92.0-98.5); BG PCO2 49.7 mmHg (35.0-45.0); BG PH 7.398 (7.350-7.450); BG PO2 86.2 mmHg (75.0-100.0); BG SAMPLE SITE RIGHT RADIAL; BG TIDAL VOLUME(mL) 450 mL; BG TOTAL HEMOGLOBIN 12.8 g/dL (12.0-18.0); BG VENT MODE VENT- PRVC; BG VENT RATE 22 set
[2020-03-31] MEDS: ASCORBIC ACID 500 MG TABLET PO SCH ×2 (09:00→21:38)
[2020-03-31] MEDS: METHYLPREDNISOLONE SOD SUCC 40 MG/ML VIAL IV SCH (09:00)
[2020-03-31] MEDS: ENOXAPARIN 120MG/0.8ML SYR SUBCUT SCH ×2 (09:00→21:38)
[2020-03-31] MEDS: ZINC SULFATE 220 MG ( 50 ) CAPSULE PO SCH (09:00)
[2020-03-31] MEDS: FAMOTIDINE 20MG TABLET PO SCH ×2 (09:00→21:38)
[2020-03-31] MEDS: ASPIRIN 325MG TABLET NG SCH (09:00)
[2020-03-31] MEDS: GUAIFENESIN/DM 600MG/30MG ER TAB 12HR PO SCH ×2 (09:00→21:38)
[2020-03-31] MEDS ORDERED: KCL 20MEQ/100ML PREMIX 100 ML IV ONE (09:00)
[2020-03-31] MEDS: MONTELUKAST SODIUM 10MG TABLET PO SCH (17:34)
[2020-03-31] MEDS: FENTANYL CITRATE/PF 2,500 MCG in SODIUM CHLORIDE 0.9% 200 ML IV PRN (21:03)
[2020-04-01] VITALS (92 sets, daily range): BP systolic 92–158; BP diastolic 55–81
[2020-04-01] MEDS: ALBUTEROL 6.7GM HFA INHALER ORI SCH ×6 (00:15→20:20)
[2020-04-01] MEDS: MIDAZOLAM HCL 100 MG in DEXT 5% WATER 80 ML IV PRN ×3 (00:50→22:28)
[2020-04-01] MEDS: BLOOD SUGAR DIAGNOSTIC STRIP TEST SCH ×3 (05:20→17:24)
[2020-04-01] MEDS: INSULIN LISPRO 100 UNITS/ML SUBCUT SCH ×4 (06:00→17:24)
[2020-04-01 06:33] LABS: BASOPHILS % 0.3 % (0.0-2.0); CHLORIDE 103 mEq/L (98-107); HEMATOCRIT. 35.4 % (42.0-52.0); HEMOGLOBIN. 11.8 g/dL (14.0-18.0); MEAN CORPUSCULAR HEMOGLOBIN 29.6 pg (28.0-32.0); MEAN CORPUSCULAR VOLUME 88.7 fL (80.0-94.0); MEAN PLATELET VOLUME 10.5 fl (7.4-10.4); MONOCYTES % 5.5 % (2.0-8.0); NEUTROPHILS % 82.2 % (40.0-76.0); PLATELET 300 x1000/uL (130-400); RED BLOOD CELL COUNT 3.99 mill/uL (4.7-6.1)
[2020-04-01] MEDS: FENTANYL CITRATE/PF 2,500 MCG in SODIUM CHLORIDE 0.9% 200 ML IV PRN ×2 (08:02→17:25)
[2020-04-01 08:50] LABS: BG CARBOXYHEMOGLOBIN 0.3 % (0.5-1.5); BG DEOXYHEMOGLOBIN 2.3 % (0.0-5.0); BG HCO3 ACT 30.4 mmol/L (22.0-26.0); BG METHEMOGLOBIN 0.2 % (0.0-1.5); BG OXYGEN SATURATION 97.7 % (92.0-98.5); BG OXYHEMOGLOBIN 97.2 % (94.0-97.0); BG PCO2 48.4 mmHg (35.0-45.0); BG PH 7.416 (7.350-7.450); BG PO2 104.9 mmHg (75.0-100.0); BG SAMPLE SITE RIGHT BRACHIAL; BG TIDAL VOLUME(mL) 450 mL; BG TOTAL HEMOGLOBIN 12.4 g/dL (12.0-18.0); BG VENT MODE VENT - A/C; BG VENT RATE 18 set
[2020-04-01] MEDS: ZINC SULFATE 220 MG ( 50 ) CAPSULE PO SCH (09:50)
[2020-04-01] MEDS: ASCORBIC ACID 500 MG TABLET PO SCH ×2 (09:50→20:51)
[2020-04-01] MEDS: FAMOTIDINE 20MG TABLET PO SCH ×2 (09:50→20:51)
[2020-04-01] MEDS: GUAIFENESIN/DM 600MG/30MG ER TAB 12HR PO SCH ×2 (09:51→20:51)
[2020-04-01] MEDS: ASPIRIN 325MG TABLET NG SCH (09:51)
[2020-04-01] MEDS: ENOXAPARIN 120MG/0.8ML SYR SUBCUT SCH ×2 (09:51→20:52)
[2020-04-01] MEDS: MONTELUKAST SODIUM 10MG TABLET PO SCH (17:16)
[2020-04-02] VITALS (94 sets, daily range): BP systolic 98–155; BP diastolic 52–98
[2020-04-02] MEDS: ALBUTEROL 6.7GM HFA INHALER ORI SCH ×6 (01:01→20:00)
[2020-04-02] MEDS: FENTANYL CITRATE/PF 2,500 MCG in SODIUM CHLORIDE 0.9% 200 ML IV PRN ×2 (03:18→16:52)
[2020-04-02 05:53] LABS: BASOPHILS % 0.6 % (0.0-2.0); EOSINOPHILS % 2.2 % (0.0-5.0); HEMATOCRIT. 35.8 % (42.0-52.0); HEMOGLOBIN. 12.1 g/dL (14.0-18.0); LYMPHOCYTES % 15.3 % (20.0-50.0); MEAN CORPUSCULAR HEMOGLOBIN 30.1 pg (28.0-32.0); MEAN CORPUSCULAR VOLUME 89.2 fL (80.0-94.0); MEAN PLATELET VOLUME 10.2 fl (7.4-10.4); MONOCYTES % 7.1 % (2.0-8.0); NEUTROPHILS % 74.8 % (40.0-76.0); PLATELET 310 x1000/uL (130-400); RED BLOOD CELL COUNT 4.01 mill/uL (4.7-6.1); RED CELL DISTRIBUTION WIDTH 13.1 % (11.6-14.6)
[2020-04-02] MEDS: BLOOD SUGAR DIAGNOSTIC STRIP TEST SCH ×4 (06:00→18:07)
[2020-04-02 06:04] LABS: CHLORIDE 102 mEq/L (98-107)
[2020-04-02] MEDS: INSULIN LISPRO 100 UNITS/ML SUBCUT SCH ×4 (06:49→18:10)
[2020-04-02 08:22] LABS: BG BASE EXCESS 4.1 mmol/L (-2.0-2.0); BG CARBOXYHEMOGLOBIN 0.8 % (0.5-1.5); BG DEOXYHEMOGLOBIN 3.1 % (0.0-5.0); BG HCO3 ACT 30.8 mmol/L (22.0-26.0); BG METHEMOGLOBIN 0.3 % (0.0-1.5); BG OXYGEN SATURATION 96.9 % (92.0-98.5); BG OXYHEMOGLOBIN 95.8 % (94.0-97.0); BG PCO2 54.8 mmHg (35.0-45.0); BG PH 7.367 (7.350-7.450); BG PO2 94.3 mmHg (75.0-100.0); BG SAMPLE SITE RIGHT RADIAL; BG TIDAL VOLUME(mL) 450 mL; BG TOTAL HEMOGLOBIN 13.2 g/dL (12.0-18.0); BG VENT MODE VENT - A/C; BG VENT RATE 14 set
[2020-04-02] MEDS: ASCORBIC ACID 500 MG TABLET PO SCH ×2 (09:12→21:41)
[2020-04-02] MEDS: FAMOTIDINE 20MG TABLET PO SCH ×2 (09:12→21:41)
[2020-04-02] MEDS: ENOXAPARIN 120MG/0.8ML SYR SUBCUT SCH ×2 (09:12→21:41)
[2020-04-02] MEDS: GUAIFENESIN/DM 600MG/30MG ER TAB 12HR PO SCH ×2 (09:12→20:21)
[2020-04-02] MEDS: ASPIRIN 325MG TABLET NG SCH (09:12)
[2020-04-02] MEDS: ZINC SULFATE 220 MG ( 50 ) CAPSULE PO SCH (09:12)
[2020-04-02] MEDS: MIDAZOLAM HCL 100 MG in DEXT 5% WATER 80 ML IV PRN ×2 (09:15→21:52)
[2020-04-02] MEDS: MONTELUKAST SODIUM 10MG TABLET PO SCH (18:10)
[2020-04-03] VITALS (92 sets, daily range): BP systolic 99–138; BP diastolic 51–100
[2020-04-03] MEDS: INSULIN LISPRO 100 UNITS/ML SUBCUT SCH ×5 (00:08→23:23)
[2020-04-03] MEDS: BLOOD SUGAR DIAGNOSTIC STRIP TEST SCH ×5 (00:08→23:23)
[2020-04-03] MEDS: FENTANYL CITRATE/PF 2,500 MCG in SODIUM CHLORIDE 0.9% 200 ML IV PRN ×3 (00:10→19:24)
[2020-04-03] MEDS: ALBUTEROL 6.7GM HFA INHALER ORI SCH ×6 (00:28→20:00)
[2020-04-03 04:48] LABS: BASOPHILS % 0.7 % (0.0-2.0); EOSINOPHILS % 2.2 % (0.0-5.0); HEMATOCRIT. 35.5 % (42.0-52.0); HEMOGLOBIN. 11.9 g/dL (14.0-18.0); LYMPHOCYTES % 14.5 % (20.0-50.0); MEAN CORPUSCULAR HEMOGLOBIN 30.2 pg (28.0-32.0); MEAN CORPUSCULAR VOLUME 89.8 fL (80.0-94.0); MEAN PLATELET VOLUME 9.8 fl (7.4-10.4); MONOCYTES % 7.1 % (2.0-8.0); NEUTROPHILS % 75.5 % (40.0-76.0); PLATELET 310 x1000/uL (130-400); RED BLOOD CELL COUNT 3.96 mill/uL (4.7-6.1); RED CELL DISTRIBUTION WIDTH 13.4 % (11.6-14.6)
[2020-04-03 05:01] LABS: CHLORIDE 103 mEq/L (98-107)
[2020-04-03] MEDS: MIDAZOLAM HCL 100 MG in DEXT 5% WATER 80 ML IV PRN ×2 (08:09→19:24)
[2020-04-03 08:57] LABS: BG BASE EXCESS 0.2 mmol/L (-2.0-2.0); BG CARBOXYHEMOGLOBIN 0.3 % (0.5-1.5); BG DEOXYHEMOGLOBIN 1.9 % (0.0-5.0); BG FRACTION INSPIRED OXYGEN 50; BG METHEMOGLOBIN 0.1 % (0.0-1.5); BG OXYGEN SATURATION 98.1 % (92.0-98.5); BG OXYHEMOGLOBIN 97.7 % (94.0-97.0); BG PCO2 41.4 mmHg (35.0-45.0); BG PH 7.399 (7.350-7.450); BG PO2 124.3 mmHg (75.0-100.0); BG PRESSURE SUPPORT 12; BG SAMPLE SITE RIGHT BRACHIAL; BG TIDAL VOLUME(mL) 450 mL; BG TOTAL HEMOGLOBIN 12.1 g/dL (12.0-18.0); BG VENT MODE VENT - SIMV; BG VENT RATE 8 set
[2020-04-03] MEDS: ASPIRIN 325MG TABLET NG SCH (09:29)
[2020-04-03] MEDS: GUAIFENESIN/DM 600MG/30MG ER TAB 12HR PO SCH ×2 (09:29→20:14)
[2020-04-03] MEDS: ZINC SULFATE 220 MG ( 50 ) CAPSULE PO SCH (09:29)
[2020-04-03] MEDS: FAMOTIDINE 20MG TABLET PO SCH ×2 (09:29→20:14)
[2020-04-03] MEDS: ASCORBIC ACID 500 MG TABLET PO SCH ×2 (09:30→20:14)
[2020-04-03] MEDS: ENOXAPARIN 120MG/0.8ML SYR SUBCUT SCH ×2 (09:30→20:15)
[2020-04-03] MEDS: MONTELUKAST SODIUM 10MG TABLET PO SCH (17:28)
[2020-04-04] VITALS (63 sets, daily range): BP systolic 110–169; BP diastolic 59–96
[2020-04-04] MEDS: ALBUTEROL 6.7GM HFA INHALER ORI SCH ×6 (00:10→21:30)
[2020-04-04] MEDS: FENTANYL CITRATE/PF 2,500 MCG in SODIUM CHLORIDE 0.9% 200 ML IV PRN (02:10)
[2020-04-04] MEDS: BLOOD SUGAR DIAGNOSTIC STRIP TEST SCH ×4 (05:24→23:27)
[2020-04-04] MEDS: INSULIN LISPRO 100 UNITS/ML SUBCUT SCH ×4 (05:24→23:28)
[2020-04-04] MEDS: MIDAZOLAM HCL 100 MG in DEXT 5% WATER 80 ML IV PRN (05:55)
[2020-04-04] MEDS: ZINC SULFATE 220 MG ( 50 ) CAPSULE PO SCH (10:13)
[2020-04-04] MEDS: ASCORBIC ACID 500 MG TABLET PO SCH ×2 (10:13→20:43)
[2020-04-04] MEDS: ASPIRIN 325MG TABLET NG SCH (10:13)
[2020-04-04] MEDS: FAMOTIDINE 20MG TABLET PO SCH ×2 (10:13→20:43)
[2020-04-04] MEDS: GUAIFENESIN/DM 600MG/30MG ER TAB 12HR PO SCH ×2 (10:13→20:43)
[2020-04-04] MEDS: ENOXAPARIN 120MG/0.8ML SYR SUBCUT SCH ×2 (10:14→20:43)
[2020-04-04 11:24] LABS: BG BASE EXCESS 5.6 mmol/L (-2.0-2.0); BG CARBOXYHEMOGLOBIN 0.6 % (0.5-1.5); BG DEOXYHEMOGLOBIN 3.1 % (0.0-5.0); BG FRACTION INSPIRED OXYGEN 40; BG HCO3 ACT 32.2 mmol/L (22.0-26.0); BG METHEMOGLOBIN 0.3 % (0.0-1.5); BG OXYGEN SATURATION 96.9 % (92.0-98.5); BG PCO2 55.5 mmHg (35.0-45.0); BG PH 7.381 (7.350-7.450); BG PRESSURE SUPPORT 8; BG SAMPLE SITE RIGHT BRACHIAL; BG TOTAL HEMOGLOBIN 12.9 g/dL (12.0-18.0); BG VENT MODE VENT - CPAP
[2020-04-04 13:29] LABS: BG BASE EXCESS 6.9 mmol/L (-2.0-2.0); BG CARBOXYHEMOGLOBIN 0.6 % (0.5-1.5); BG CPAP (cmH2O) 0 cm(H2O); BG DEOXYHEMOGLOBIN 6.1 % (0.0-5.0); BG HCO3 ACT 32.7 mmol/L (22.0-26.0); BG METHEMOGLOBIN 0.1 % (0.0-1.5); BG OXYGEN SATURATION 93.9 % (92.0-98.5); BG OXYHEMOGLOBIN 93.2 % (94.0-97.0); BG PCO2 52.1 mmHg (35.0-45.0); BG PH 7.416 (7.350-7.450); BG PO2 68.8 mmHg (75.0-100.0); BG SAMPLE SITE RIGHT BRACHIAL; BG TOTAL HEMOGLOBIN 12.3 g/dL (12.0-18.0); BG VENT MODE VENT - CPAP
[2020-04-04] MEDS: ACETAMINOPHEN 650MG/20.3ML UDC NG PRN ×2 (14:55→20:43)
[2020-04-04 16:18] LABS: BG BASE EXCESS 6.4 mmol/L (-2.0-2.0); BG CARBOXYHEMOGLOBIN 0.3 % (0.5-1.5); BG DEOXYHEMOGLOBIN 4.9 % (0.0-5.0); BG FRACTION INSPIRED OXYGEN 48; BG HCO3 ACT 31.3 mmol/L (22.0-26.0); BG OXYGEN SATURATION 95.1 % (92.0-98.5); BG OXYHEMOGLOBIN 94.8 % (94.0-97.0); BG PO2 73.3 mmHg (75.0-100.0); BG SAMPLE SITE RIGHT RADIAL; BG TOTAL HEMOGLOBIN 12.4 g/dL (12.0-18.0); BG VENT MODE NASAL CANNULA
[2020-04-04] MEDS: MONTELUKAST SODIUM 10MG TABLET PO SCH (18:06)
[2020-04-05] VITALS (38 sets, daily range): BP systolic 110–157; BP diastolic 60–106
[2020-04-05] MEDS: ALBUTEROL 6.7GM HFA INHALER ORI SCH ×5 (00:10→13:00)
[2020-04-05] MEDS: ACETAMINOPHEN 650MG/20.3ML UDC NG PRN ×2 (03:58→20:42)
[2020-04-05] MEDS: BLOOD SUGAR DIAGNOSTIC STRIP TEST SCH ×4 (05:53→23:51)
[2020-04-05] MEDS: INSULIN LISPRO 100 UNITS/ML SUBCUT SCH ×4 (05:55→23:54)
[2020-04-05] MEDS: ENOXAPARIN 120MG/0.8ML SYR SUBCUT SCH ×2 (08:32→20:42)
[2020-04-05] MEDS: ASPIRIN 325MG TABLET NG SCH (08:32)
[2020-04-05] MEDS: ASCORBIC ACID 500 MG TABLET PO SCH ×2 (08:32→20:43)
[2020-04-05] MEDS: ZINC SULFATE 220 MG ( 50 ) CAPSULE PO SCH (08:32)
[2020-04-05] MEDS: FAMOTIDINE 20MG TABLET PO SCH ×2 (08:32→20:43)
[2020-04-05] MEDS: GUAIFENESIN/DM 600MG/30MG ER TAB 12HR PO SCH ×2 (08:32→20:43)
[2020-04-05 08:53] LABS: BG BASE EXCESS 3.8 mmol/L (-2.0-2.0); BG CARBOXYHEMOGLOBIN 0.8 % (0.5-1.5); BG DEOXYHEMOGLOBIN 5.3 % (0.0-5.0); BG FRACTION INSPIRED OXYGEN 44; BG HCO3 ACT 27.7 mmol/L (22.0-26.0); BG METHEMOGLOBIN 0.3 % (0.0-1.5); BG OXYGEN SATURATION 94.6 % (92.0-98.5); BG OXYHEMOGLOBIN 93.6 % (94.0-97.0); BG PH 7.469 (7.350-7.450); BG PO2 68.5 mmHg (75.0-100.0); BG SAMPLE SITE LEFT RADIAL; BG TOTAL HEMOGLOBIN 12.4 g/dL (12.0-18.0); BG VENT MODE NASAL CANNULA
[2020-04-05] MEDS: LORAZEPAM 2MG/ML CPJ IV PRN ×3 (11:17→19:51)
[2020-04-05 11:52] LABS: CHLORIDE 104 mEq/L (98-107)
[2020-04-05 11:54] LABS: HEMATOCRIT. 37.7 % (42.0-52.0); HEMOGLOBIN. 12.8 g/dL (14.0-18.0); MEAN CORPUSCULAR HEMOGLOBIN 30.3 pg (28.0-32.0); MEAN CORPUSCULAR VOLUME 88.7 fL (80.0-94.0); PLATELET 351 x1000/uL (130-400); RED BLOOD CELL COUNT 4.25 mill/uL (4.7-6.1); RED CELL DISTRIBUTION WIDTH 13.4 % (11.6-14.6)
[2020-04-05 12:03] LABS: CREATINE KINASE 133 IU/L (39-308)
[2020-04-05 12:16] LABS: PLATELET ESTIMATE NORMAL
[2020-04-05] MEDS ORDERED: THROAT LOZENGES-BENZOCAINE/MENTH/CETYLPYRD CL LOZENGES MM PRN (13:00)
[2020-04-05] MEDS ORDERED: MORPHINE SULFATE 2 MG/ML CPJ (NOT FOR IM USE) IV PRN (16:37)
[2020-04-05] MEDS: MONTELUKAST SODIUM 10MG TABLET PO SCH (17:15)
[2020-04-05] MEDS: METOPROLOL TARTRATE 5MG/5ML VIAL IV PRN ×2 (18:36→23:14)
[2020-04-06] VITALS (52 sets, daily range): BP systolic 104–163; BP diastolic 57–103
[2020-04-06] MEDS: MORPHINE SULFATE 2 MG/ML CPJ (NOT FOR IM USE) IV PRN ×3 (03:42→21:16)
[2020-04-06] MEDS: BLOOD SUGAR DIAGNOSTIC STRIP TEST SCH ×4 (05:43→23:44)
[2020-04-06] MEDS: INSULIN LISPRO 100 UNITS/ML SUBCUT SCH ×3 (05:43→18:00)
[2020-04-06] MEDS: FAMOTIDINE 20MG TABLET PO SCH ×2 (08:02→20:52)
[2020-04-06] MEDS: ASCORBIC ACID 500 MG TABLET PO SCH ×2 (08:02→20:52)
[2020-04-06] MEDS: GUAIFENESIN/DM 600MG/30MG ER TAB 12HR PO SCH ×2 (08:02→20:52)
[2020-04-06] MEDS: ZINC SULFATE 220 MG ( 50 ) CAPSULE PO SCH (08:02)
[2020-04-06] MEDS: ENOXAPARIN 120MG/0.8ML SYR SUBCUT SCH ×2 (08:02→20:53)
[2020-04-06] MEDS: ASPIRIN 325MG TABLET NG SCH (08:04)
[2020-04-06] MEDS ORDERED: METHADONE HCL 10MG TABLET PO SCH (09:00)
[2020-04-06] MEDS: DILTIAZEM HCL 60MG TABLET PO SCH ×2 (14:52→20:53)
[2020-04-06] MEDS: MONTELUKAST SODIUM 10MG TABLET PO SCH (16:26)
[2020-04-06] MEDS: METHADONE HCL 10MG TABLET PO SCH (16:28)
[2020-04-06] MEDS: ALBUTEROL 6.7GM HFA INHALER ORI SCH ×2 (17:05→21:05)
[2020-04-07] VITALS (52 sets, daily range): BP systolic 112–142; BP diastolic 62–133
[2020-04-07] MEDS: ALBUTEROL 6.7GM HFA INHALER ORI SCH ×6 (00:35→21:58)
[2020-04-07] MEDS: MORPHINE SULFATE 2 MG/ML CPJ (NOT FOR IM USE) IV PRN (04:45)
[2020-04-07 05:36] LABS: CHLORIDE 100 mEq/L (98-107)
[2020-04-07 05:39] LABS: BASOPHILS % 0.7 % (0.0-2.0); EOSINOPHILS % 5.3 % (0.0-5.0); HEMOGLOBIN. 12.3 g/dL (14.0-18.0); LYMPHOCYTES % 19.7 % (20.0-50.0); MEAN CORPUSCULAR HEMOGLOBIN 30.2 pg (28.0-32.0); MEAN CORPUSCULAR VOLUME 88.7 fL (80.0-94.0); MONOCYTES % 7.6 % (2.0-8.0); NEUTROPHILS % 66.7 % (40.0-76.0); PLATELET 321 x1000/uL (130-400); RED BLOOD CELL COUNT 4.06 mill/uL (4.7-6.1); RED CELL DISTRIBUTION WIDTH 13.7 % (11.6-14.6)
[2020-04-07] MEDS: INSULIN LISPRO 100 UNITS/ML SUBCUT SCH ×4 (05:45→18:00)
[2020-04-07] MEDS: DILTIAZEM HCL 60MG TABLET PO SCH ×3 (05:45→21:15)
[2020-04-07] MEDS: BLOOD SUGAR DIAGNOSTIC STRIP TEST SCH ×3 (05:45→18:00)
[2020-04-07] MEDS ORDERED: POTASSIUM CHLORIDE 20MEQ/PACKET PO SCH (08:00)
[2020-04-07] MEDS ORDERED: POTASSIUM CHLORIDE 20MEQ TABLET SR PO SCH (08:00)
[2020-04-07] MEDS: GUAIFENESIN/DM 600MG/30MG ER TAB 12HR PO SCH ×2 (09:00→21:15)
[2020-04-07] MEDS: ASPIRIN 325MG TABLET NG SCH (09:00)
[2020-04-07] MEDS: ASCORBIC ACID 500 MG TABLET PO SCH ×2 (09:09→21:15)
[2020-04-07] MEDS: FAMOTIDINE 20MG TABLET PO SCH ×2 (09:10→21:15)
[2020-04-07] MEDS: ZINC SULFATE 220 MG ( 50 ) CAPSULE PO SCH (09:10)
[2020-04-07] MEDS: METHADONE HCL 10MG TABLET PO SCH ×2 (09:11→17:00)
[2020-04-07] MEDS: ENOXAPARIN 120MG/0.8ML SYR SUBCUT SCH ×2 (09:12→21:16)
[2020-04-07 09:42] LABS: BG BASE EXCESS 3.5 mmol/L (-2.0-2.0); BG DEOXYHEMOGLOBIN 6.3 % (0.0-5.0); BG FRACTION INSPIRED OXYGEN 36; BG HCO3 ACT 27.4 mmol/L (22.0-26.0); BG METHEMOGLOBIN 0.1 % (0.0-1.5); BG OXYGEN SATURATION 93.6 % (92.0-98.5); BG OXYHEMOGLOBIN 92.6 % (94.0-97.0); BG PCO2 38.8 mmHg (35.0-45.0); BG PH 7.466 (7.350-7.450); BG PO2 64.5 mmHg (75.0-100.0); BG SAMPLE SITE LEFT BRACHIAL; BG TOTAL HEMOGLOBIN 12.9 g/dL (12.0-18.0); BG VENT MODE NASAL CANNULA
[2020-04-07] MEDS ORDERED: BISACODYL 5MG TABLET PO PRN (10:00)
[2020-04-07] MEDS ORDERED: LACTULOSE 20G/30ML UDC PO SCH (10:00)
[2020-04-07] MEDS ORDERED: MORPHINE SULFATE 2 MG/ML CPJ (NOT FOR IM USE) IV PRN (10:00)
[2020-04-07] MEDS: MONTELUKAST SODIUM 10MG TABLET PO SCH (17:00)
[2020-04-07] MEDS: LORAZEPAM 2MG/ML CPJ IV PRN (20:02)
[2020-04-08] VITALS (43 sets, daily range): BP systolic 111–142; BP diastolic 59–83
[2020-04-08] MEDS: BLOOD SUGAR DIAGNOSTIC STRIP TEST SCH ×5 (00:26→21:55)
[2020-04-08] MEDS: ALBUTEROL 6.7GM HFA INHALER ORI SCH ×5 (01:23→20:00)
[2020-04-08] MEDS: LORAZEPAM 2MG/ML CPJ IV PRN (04:00)
[2020-04-08] MEDS: DILTIAZEM HCL 60MG TABLET PO SCH ×3 (05:18→22:33)
[2020-04-08 05:39] LABS: BASOPHILS % 0.6 % (0.0-2.0); EOSINOPHILS % 4.9 % (0.0-5.0); HEMATOCRIT. 37.4 % (42.0-52.0); HEMOGLOBIN. 12.6 g/dL (14.0-18.0); LYMPHOCYTES % 14.4 % (20.0-50.0); MEAN CORPUSCULAR HEMOGLOBIN 29.9 pg (28.0-32.0); MEAN CORPUSCULAR VOLUME 88.6 fL (80.0-94.0); MONOCYTES % 5.4 % (2.0-8.0); NEUTROPHILS % 74.7 % (40.0-76.0); PLATELET 305 x1000/uL (130-400); RED BLOOD CELL COUNT 4.23 mill/uL (4.7-6.1); RED CELL DISTRIBUTION WIDTH 13.6 % (11.6-14.6)
[2020-04-08 05:46] LABS: CHLORIDE 104 mEq/L (98-107)
[2020-04-08] MEDS: INSULIN LISPRO 100 UNITS/ML SUBCUT SCH ×5 (05:56→21:00)
[2020-04-08] MEDS: FAMOTIDINE 20MG TABLET PO SCH ×2 (08:13→20:58)
[2020-04-08] MEDS: ASCORBIC ACID 500 MG TABLET PO SCH ×2 (08:13→20:58)
[2020-04-08] MEDS: ASPIRIN 325MG TABLET NG SCH (08:13)
[2020-04-08] MEDS: GUAIFENESIN/DM 600MG/30MG ER TAB 12HR PO SCH ×2 (08:15→20:57)
[2020-04-08] MEDS: ZINC SULFATE 220 MG ( 50 ) CAPSULE PO SCH (08:15)
[2020-04-08] MEDS: METHADONE HCL 10MG TABLET PO SCH ×2 (08:15→16:49)
[2020-04-08] MEDS: ENOXAPARIN 120MG/0.8ML SYR SUBCUT SCH (08:16)
[2020-04-08] MEDS: MONTELUKAST SODIUM 10MG TABLET PO SCH (16:50)
[2020-04-08] MEDS: METOPROLOL TARTRATE 5MG/5ML VIAL IV PRN (19:55)
[2020-04-08] MEDS: ACETAMINOPHEN 325MG TABLET PO PRN (20:58)
[2020-04-09] VITALS (8 sets, daily range): BP systolic 101–128; BP diastolic 65–78
[2020-04-09] MEDS: ALBUTEROL 6.7GM HFA INHALER ORI SCH ×4 (00:31→12:00)
[2020-04-09] MEDS: DILTIAZEM HCL 60MG TABLET PO SCH ×3 (06:30→22:29)
[2020-04-09] MEDS: INSULIN LISPRO 100 UNITS/ML SUBCUT SCH ×4 (07:40→21:00)
[2020-04-09] MEDS: BLOOD SUGAR DIAGNOSTIC STRIP TEST SCH ×4 (07:47→21:00)
[2020-04-09] MEDS: FAMOTIDINE 20MG TABLET PO SCH ×2 (09:31→20:10)
[2020-04-09] MEDS: ZINC SULFATE 220 MG ( 50 ) CAPSULE PO SCH (09:31)
[2020-04-09] MEDS: METHADONE HCL 10MG TABLET PO SCH ×2 (09:31→17:47)
[2020-04-09] MEDS: ASCORBIC ACID 500 MG TABLET PO SCH ×2 (09:31→20:10)
[2020-04-09] MEDS: GUAIFENESIN/DM 600MG/30MG ER TAB 12HR PO SCH ×2 (09:31→20:10)
[2020-04-09] MEDS: ASPIRIN 325MG TABLET NG SCH (11:33)
[2020-04-09] MEDS: ENOXAPARIN 120MG/0.8ML SYR SUBCUT SCH ×2 (15:35→22:32)
[2020-04-09] MEDS: MONTELUKAST SODIUM 10MG TABLET PO SCH (17:46)
[2020-04-09 18:21] LABS: BG BASE EXCESS -2.6 mmol/L (-2.0-2.0); BG CARBOXYHEMOGLOBIN 0.1 % (0.5-1.5); BG DEOXYHEMOGLOBIN 0.8 % (0.0-5.0); BG FRACTION INSPIRED OXYGEN 100; BG HCO3 ACT 21.5 mmol/L (22.0-26.0); BG METHEMOGLOBIN 0.3 % (0.0-1.5); BG OXYGEN SATURATION 99.2 % (92.0-98.5); BG OXYHEMOGLOBIN 98.8 % (94.0-97.0); BG PCO2 35.1 mmHg (35.0-45.0); BG PH 7.404 (7.350-7.450); BG PO2 221.8 mmHg (75.0-100.0); BG SAMPLE SITE LEFT BRACHIAL; BG TOTAL HEMOGLOBIN 13.3 g/dL (12.0-18.0); BG VENT MODE MASK - NRB
[2020-04-10] VITALS (12 sets, daily range): BP systolic 114–139; BP diastolic 58–81
[2020-04-10] MEDS: IPRATROPIUM BROMIDE (0.02%) 0.5MG/2.5ML NEB HHN SCH ×2 (01:05→16:42)
[2020-04-10] MEDS: INSULIN LISPRO 100 UNITS/ML SUBCUT SCH ×4 (06:50→20:58)
[2020-04-10] MEDS: BLOOD SUGAR DIAGNOSTIC STRIP TEST SCH ×4 (06:56→20:58)
[2020-04-10] MEDS: DILTIAZEM HCL 60MG TABLET PO SCH ×3 (06:56→22:38)
[2020-04-10] MEDS: GUAIFENESIN/DM 600MG/30MG ER TAB 12HR PO SCH ×2 (09:18→20:58)
[2020-04-10] MEDS: ASCORBIC ACID 500 MG TABLET PO SCH ×2 (09:18→20:58)
[2020-04-10] MEDS: ASPIRIN 325MG TABLET NG SCH (09:18)
[2020-04-10] MEDS: METHADONE HCL 10MG TABLET PO SCH ×2 (09:21→17:13)
[2020-04-10] MEDS: ZINC SULFATE 220 MG ( 50 ) CAPSULE PO SCH (09:22)
[2020-04-10] MEDS: FAMOTIDINE 20MG TABLET PO SCH ×2 (09:22→20:58)
[2020-04-10] MEDS: ENOXAPARIN 120MG/0.8ML SYR SUBCUT SCH ×2 (09:23→20:58)
[2020-04-10 12:30] LABS: KETONES URINE TRACE (NEGATIVE); LEUKOCYTE ESTERASE URINE 1+ (NEGATIVE); NITRITE URINE NEGATIVE (NEGATIVE); OCCULT BLOOD URINE 3+ (NEGATIVE); PROTEIN URINE 2+ (NEGATIVE); SPECIFIC GRAVITY URINE 1.016 (1.005-1.030)
[2020-04-10 12:35] LABS: COLOR URINE BLOODY (YELLOW)
[2020-04-10 12:36] LABS: CLARITY URINE TURBID (CLEAR)
[2020-04-10] MEDS: ACETAMINOPHEN 325MG TABLET PO PRN (14:09)
[2020-04-10 16:30] LABS: BG BASE EXCESS 1.7 mmol/L (-2.0-2.0); BG CARBOXYHEMOGLOBIN 0.3 % (0.5-1.5); BG DEOXYHEMOGLOBIN 0.7 % (0.0-5.0); BG FRACTION INSPIRED OXYGEN 100; BG HCO3 ACT 25.7 mmol/L (22.0-26.0); BG METHEMOGLOBIN 0.2 % (0.0-1.5); BG OXYGEN SATURATION 99.3 % (92.0-98.5); BG OXYHEMOGLOBIN 98.8 % (94.0-97.0); BG PCO2 38.2 mmHg (35.0-45.0); BG PH 7.446 (7.350-7.450); BG PO2 244.7 mmHg (75.0-100.0); BG SAMPLE SITE LEFT RADIAL; BG TOTAL HEMOGLOBIN 12.5 g/dL (12.0-18.0); BG VENT MODE MASK - NRB
[2020-04-10] MEDS: MONTELUKAST SODIUM 10MG TABLET PO SCH (17:11)
[2020-04-11] VITALS (12 sets, daily range): BP systolic 113–135; BP diastolic 64–85
[2020-04-11] MEDS: IPRATROPIUM BROMIDE (0.02%) 0.5MG/2.5ML NEB HHN SCH ×5 (01:10→22:04)
[2020-04-11 06:29] LABS: BASOPHILS % 0.8 % (0.0-2.0); EOSINOPHILS % 4.5 % (0.0-5.0); HEMATOCRIT. 32.3 % (42.0-52.0); HEMOGLOBIN. 11.1 g/dL (14.0-18.0); LYMPHOCYTES % 28.7 % (20.0-50.0); MEAN CORPUSCULAR HEMOGLOBIN 30.3 pg (28.0-32.0); MEAN CORPUSCULAR VOLUME 88.4 fL (80.0-94.0); MEAN PLATELET VOLUME 8.9 fl (7.4-10.4); MONOCYTES % 12.2 % (2.0-8.0); NEUTROPHILS % 53.8 % (40.0-76.0); PLATELET 147 x1000/uL (130-400); RED BLOOD CELL COUNT 3.65 mill/uL (4.7-6.1); RED CELL DISTRIBUTION WIDTH 13.8 % (11.6-14.6)
[2020-04-11] MEDS: BLOOD SUGAR DIAGNOSTIC STRIP TEST SCH ×4 (06:32→21:13)
[2020-04-11] MEDS: DILTIAZEM HCL 60MG TABLET PO SCH ×3 (06:32→22:12)
[2020-04-11] MEDS: INSULIN LISPRO 100 UNITS/ML SUBCUT SCH ×4 (06:32→21:00)
[2020-04-11 06:34] LABS: CHLORIDE 99 mEq/L (98-107)
[2020-04-11] MEDS: FAMOTIDINE 20MG TABLET PO SCH ×2 (09:18→21:12)
[2020-04-11] MEDS: GUAIFENESIN/DM 600MG/30MG ER TAB 12HR PO SCH ×2 (09:18→21:12)
[2020-04-11] MEDS: ASCORBIC ACID 500 MG TABLET PO SCH ×2 (09:18→21:12)
[2020-04-11] MEDS: ENOXAPARIN 120MG/0.8ML SYR SUBCUT SCH ×2 (09:18→21:13)
[2020-04-11] MEDS: ZINC SULFATE 220 MG ( 50 ) CAPSULE PO SCH (09:18)
[2020-04-11] MEDS: ASPIRIN 325MG TABLET NG SCH (09:18)
[2020-04-11] MEDS: METHADONE HCL 10MG TABLET PO SCH ×2 (09:25→16:52)
[2020-04-11] MEDS ORDERED: LORAZEPAM 2MG/ML CPJ IV PRN (14:15)
[2020-04-11] MEDS: MONTELUKAST SODIUM 10MG TABLET PO SCH (16:52)
[2020-04-11] MEDS: CEFEPIME 1,000 MG in DEXTROSE 5% WATER 50 ML IV SCH (17:53)
[2020-04-12] VITALS (12 sets, daily range): BP systolic 120–146; BP diastolic 59–78
[2020-04-12] MEDS: IPRATROPIUM BROMIDE (0.02%) 0.5MG/2.5ML NEB HHN SCH ×6 (00:53→21:31)
[2020-04-12] MEDS: CEFEPIME 1,000 MG in DEXTROSE 5% WATER 50 ML IV SCH (05:37)
[2020-04-12 06:18] LABS: CHLORIDE 101 mEq/L (98-107)
[2020-04-12] MEDS: DILTIAZEM HCL 60MG TABLET PO SCH ×3 (06:21→21:13)
[2020-04-12 06:28] LABS: BASOPHILS % 0.6 % (0.0-2.0); EOSINOPHILS % 3.4 % (0.0-5.0); HEMATOCRIT. 33.6 % (42.0-52.0); HEMOGLOBIN. 11.6 g/dL (14.0-18.0); LYMPHOCYTES % 20.1 % (20.0-50.0); MEAN CORPUSCULAR HEMOGLOBIN 30.4 pg (28.0-32.0); MEAN CORPUSCULAR VOLUME 87.9 fL (80.0-94.0); MEAN PLATELET VOLUME 9.5 fl (7.4-10.4); MONOCYTES % 9.8 % (2.0-8.0); NEUTROPHILS % 66.1 % (40.0-76.0); PLATELET 151 x1000/uL (130-400); RED BLOOD CELL COUNT 3.82 mill/uL (4.7-6.1); RED CELL DISTRIBUTION WIDTH 13.6 % (11.6-14.6)
[2020-04-12 06:29] LABS: CREATINE KINASE 52 IU/L (39-308)
[2020-04-12] MEDS: INSULIN LISPRO 100 UNITS/ML SUBCUT SCH ×4 (06:50→21:00)
[2020-04-12] MEDS: BLOOD SUGAR DIAGNOSTIC STRIP TEST SCH ×4 (06:53→21:01)
[2020-04-12] MEDS: ASCORBIC ACID 500 MG TABLET PO SCH ×2 (08:03→20:58)
[2020-04-12] MEDS: ASPIRIN 325MG TABLET NG SCH (08:03)
[2020-04-12] MEDS: GUAIFENESIN/DM 600MG/30MG ER TAB 12HR PO SCH ×2 (08:03→20:58)
[2020-04-12] MEDS: FAMOTIDINE 20MG TABLET PO SCH ×2 (08:04→20:58)
[2020-04-12] MEDS: ZINC SULFATE 220 MG ( 50 ) CAPSULE PO SCH (08:04)
[2020-04-12] MEDS: ENOXAPARIN 120MG/0.8ML SYR SUBCUT SCH ×2 (08:05→20:59)
[2020-04-12] MEDS: ACETAMINOPHEN 325MG TABLET PO PRN (11:44)
[2020-04-12] MEDS: MONTELUKAST SODIUM 10MG TABLET PO SCH (17:23)
[2020-04-12] MEDS: SULFAMETHOXAZOLE/TRIMETHOPRIM 800/160MG TABLET PO SCH (21:03)
[2020-04-13] VITALS (12 sets, daily range): BP systolic 113–133; BP diastolic 53–81
[2020-04-13] MEDS: IPRATROPIUM BROMIDE (0.02%) 0.5MG/2.5ML NEB HHN SCH ×5 (00:54→21:24)
[2020-04-13] MEDS: DILTIAZEM HCL 60MG TABLET PO SCH ×3 (05:50→21:13)
[2020-04-13] MEDS: BLOOD SUGAR DIAGNOSTIC STRIP TEST SCH ×4 (06:01→20:56)
[2020-04-13] MEDS: INSULIN LISPRO 100 UNITS/ML SUBCUT SCH ×4 (06:01→20:55)
[2020-04-13 06:03] LABS: HEMATOCRIT. 31.6 % (42.0-52.0); HEMOGLOBIN. 10.7 g/dL (14.0-18.0); MEAN CORPUSCULAR VOLUME 88.5 fL (80.0-94.0); PLATELET 151 x1000/uL (130-400); RED BLOOD CELL COUNT 3.57 mill/uL (4.7-6.1); RED CELL DISTRIBUTION WIDTH 13.8 % (11.6-14.6)
[2020-04-13 06:26] LABS: CHLORIDE 102 mEq/L (98-107)
[2020-04-13] MEDS: FAMOTIDINE 20MG TABLET PO SCH ×2 (08:26→20:55)
[2020-04-13] MEDS: GUAIFENESIN/DM 600MG/30MG ER TAB 12HR PO SCH ×2 (08:26→20:55)
[2020-04-13] MEDS: SULFAMETHOXAZOLE/TRIMETHOPRIM 800/160MG TABLET PO SCH ×2 (08:26→20:55)
[2020-04-13] MEDS: ASCORBIC ACID 500 MG TABLET PO SCH ×2 (08:26→20:55)
[2020-04-13] MEDS: ASPIRIN 325MG TABLET NG SCH (08:26)
[2020-04-13] MEDS: ZINC SULFATE 220 MG ( 50 ) CAPSULE PO SCH (08:26)
[2020-04-13] MEDS: ENOXAPARIN 120MG/0.8ML SYR SUBCUT SCH ×2 (08:27→20:56)
[2020-04-13 10:37] LABS: ATYPICAL LYMPHOCYTES 1; PLATELET ESTIMATE NORMAL
[2020-04-13] MEDS: MONTELUKAST SODIUM 10MG TABLET PO SCH (17:35)
[2020-04-14] VITALS (12 sets, daily range): BP systolic 117–135; BP diastolic 59–84
[2020-04-14] MEDS: IPRATROPIUM BROMIDE (0.02%) 0.5MG/2.5ML NEB HHN SCH ×4 (01:10→21:10)
[2020-04-14] MEDS: DILTIAZEM HCL 60MG TABLET PO SCH ×3 (05:49→21:55)
[2020-04-14] MEDS: BLOOD SUGAR DIAGNOSTIC STRIP TEST SCH ×4 (05:50→20:13)
[2020-04-14] MEDS: INSULIN LISPRO 100 UNITS/ML SUBCUT SCH ×4 (06:44→20:25)
[2020-04-14] MEDS: FAMOTIDINE 20MG TABLET PO SCH ×2 (08:20→20:12)
[2020-04-14] MEDS: ASPIRIN 325MG TABLET NG SCH (08:20)
[2020-04-14] MEDS: SULFAMETHOXAZOLE/TRIMETHOPRIM 800/160MG TABLET PO SCH ×2 (08:20→20:12)
[2020-04-14] MEDS: GUAIFENESIN/DM 600MG/30MG ER TAB 12HR PO SCH ×2 (08:20→20:12)
[2020-04-14] MEDS: ASCORBIC ACID 500 MG TABLET PO SCH ×2 (08:20→20:13)
[2020-04-14] MEDS: ZINC SULFATE 220 MG ( 50 ) CAPSULE PO SCH (08:20)
[2020-04-14] MEDS: ENOXAPARIN 120MG/0.8ML SYR SUBCUT SCH (08:21)
[2020-04-14] MEDS: MONTELUKAST SODIUM 10MG TABLET PO SCH (16:41)
[2020-04-14 18:04] LABS: CLARITY URINE CLOUDY (CLEAR); COLOR URINE RED (YELLOW); KETONES URINE NEGATIVE (NEGATIVE); LEUKOCYTE ESTERASE URINE 1+ (NEGATIVE); NITRITE URINE NEGATIVE (NEGATIVE); OCCULT BLOOD URINE 3+ (NEGATIVE); PH URINE 6.5 (4.5-8.0); PROTEIN URINE 2+ (NEGATIVE); SPECIFIC GRAVITY URINE 1.011 (1.005-1.030)
[2020-04-14 23:44] LABS: BG BASE EXCESS 1.8 mmol/L (-2.0-2.0); BG CARBOXYHEMOGLOBIN 0.1 % (0.5-1.5); BG DEOXYHEMOGLOBIN 11.7 % (0.0-5.0); BG FRACTION INSPIRED OXYGEN 21; BG HCO3 ACT 25.5 mmol/L (22.0-26.0); BG METHEMOGLOBIN 0.3 % (0.0-1.5); BG OXYGEN SATURATION 88.3 % (92.0-98.5); BG OXYHEMOGLOBIN 87.9 % (94.0-97.0); BG PH 7.457 (7.350-7.450); BG PO2 50.7 mmHg (75.0-100.0); BG SAMPLE SITE LEFT RADIAL; BG TOTAL HEMOGLOBIN 12.2 g/dL (12.0-18.0); BG VENT MODE ROOM AIR
[2020-04-15] VITALS (12 sets, daily range): BP systolic 118–131; BP diastolic 63–91
[2020-04-15] MEDS: IPRATROPIUM BROMIDE (0.02%) 0.5MG/2.5ML NEB HHN SCH ×4 (01:16→21:39)
[2020-04-15] MEDS: BLOOD SUGAR DIAGNOSTIC STRIP TEST SCH ×4 (05:53→21:00)
[2020-04-15] MEDS: DILTIAZEM HCL 60MG TABLET PO SCH ×3 (05:53→21:09)
[2020-04-15] MEDS: INSULIN LISPRO 100 UNITS/ML SUBCUT SCH ×4 (06:16→21:00)
[2020-04-15] MEDS ORDERED: FAMO20TA8 PO (06:42)
[2020-04-15] MEDS ORDERED: MONT10TA21 PO (06:42)
[2020-04-15] MEDS ORDERED: SULF1TAB44 PO (06:42)
[2020-04-15] MEDS ORDERED: ASCO500T20 PO (06:42)
[2020-04-15] MEDS ORDERED: ASPI-986 NG (06:42)
[2020-04-15] MEDS ORDERED: DILT240C91 MT (06:42)
[2020-04-15] MEDS ORDERED: ZINC220C2 PO (06:42)
[2020-04-15 07:18] LABS: BASOPHILS % 0.9 % (0.0-2.0); EOSINOPHILS % 4.4 % (0.0-5.0); HEMATOCRIT. 33.3 % (42.0-52.0); HEMOGLOBIN. 11.2 g/dL (14.0-18.0); LYMPHOCYTES % 36.4 % (20.0-50.0); MEAN CORPUSCULAR HEMOGLOBIN 29.6 pg (28.0-32.0); MEAN PLATELET VOLUME 8.8 fl (7.4-10.4); MONOCYTES % 10.1 % (2.0-8.0); NEUTROPHILS % 48.2 % (40.0-76.0); PLATELET 229 x1000/uL (130-400); RED BLOOD CELL COUNT 3.78 mill/uL (4.7-6.1); RED CELL DISTRIBUTION WIDTH 14.4 % (11.6-14.6)
[2020-04-15 07:37] LABS: CHLORIDE 104 mEq/L (98-107)
[2020-04-15] MEDS ORDERED: ALBU6.7H9 INH (08:32)
[2020-04-15] MEDS: FAMOTIDINE 20MG TABLET PO SCH ×2 (08:54→21:09)
[2020-04-15] MEDS: SULFAMETHOXAZOLE/TRIMETHOPRIM 800/160MG TABLET PO SCH ×2 (08:54→21:09)
[2020-04-15] MEDS: GUAIFENESIN/DM 600MG/30MG ER TAB 12HR PO SCH ×2 (08:54→21:09)
[2020-04-15] MEDS: ZINC SULFATE 220 MG ( 50 ) CAPSULE PO SCH (08:54)
[2020-04-15] MEDS: ASPIRIN 325MG TABLET NG SCH (08:54)
[2020-04-15] MEDS: ASCORBIC ACID 500 MG TABLET PO SCH ×2 (08:54→21:09)
[2020-04-15] MEDS: MONTELUKAST SODIUM 10MG TABLET PO SCH (18:40)
[2020-04-16] VITALS (12 sets, daily range): BP systolic 111–140; BP diastolic 58–84
[2020-04-16] MEDS: IPRATROPIUM BROMIDE (0.02%) 0.5MG/2.5ML NEB HHN SCH ×3 (02:27→21:20)
[2020-04-16] MEDS: BLOOD SUGAR DIAGNOSTIC STRIP TEST SCH ×4 (05:47→20:25)
[2020-04-16] MEDS: DILTIAZEM HCL 60MG TABLET PO SCH ×3 (05:47→20:02)
[2020-04-16] MEDS: INSULIN LISPRO 100 UNITS/ML SUBCUT SCH ×4 (06:29→20:26)
[2020-04-16] MEDS: GUAIFENESIN/DM 600MG/30MG ER TAB 12HR PO SCH ×2 (08:32→20:01)
[2020-04-16] MEDS: ASPIRIN 325MG TABLET NG SCH (08:32)
[2020-04-16] MEDS: ZINC SULFATE 220 MG ( 50 ) CAPSULE PO SCH (08:32)
[2020-04-16] MEDS: FAMOTIDINE 20MG TABLET PO SCH ×2 (08:32→20:01)
[2020-04-16] MEDS: SULFAMETHOXAZOLE/TRIMETHOPRIM 800/160MG TABLET PO SCH ×2 (08:32→20:02)
[2020-04-16] MEDS: ASCORBIC ACID 500 MG TABLET PO SCH ×2 (08:40→20:02)
[2020-04-16] MEDS: MONTELUKAST SODIUM 10MG TABLET PO SCH (17:58)
[2020-04-17] VITALS: BP_SYST 124; BP_SYST 157; BP_DIAS 74; BP_DIAS 76
[2020-04-17 02:00] VITALS: BP 157/76
[2020-04-17] MEDS: IPRATROPIUM BROMIDE (0.02%) 0.5MG/2.5ML NEB HHN SCH (02:13)
[2020-04-17 04:00] VITALS: BP 129/52
[2020-04-17] MEDS: DILTIAZEM HCL 60MG TABLET PO SCH ×2 (05:04→05:33)
[2020-04-17] MEDS: BLOOD SUGAR DIAGNOSTIC STRIP TEST SCH (05:32)
[2020-04-17] MEDS: INSULIN LISPRO 100 UNITS/ML SUBCUT SCH (05:34)
[2020-04-17 06:00] VITALS: BP 92/68
[2020-04-17 08:00] VITALS: BP 143/83
[2020-04-17 08:14] VITALS: BP 143/83
[2020-04-17] MEDS: SULFAMETHOXAZOLE/TRIMETHOPRIM 800/160MG TABLET PO SCH (08:16)
[2020-04-17] MEDS: ZINC SULFATE 220 MG ( 50 ) CAPSULE PO SCH (08:16)
[2020-04-17] MEDS: ASPIRIN 325MG TABLET NG SCH (08:16)
== END 2020-04-17 09:08 | disposition home or self-care (01) | DRG 720 ==
LOC: ER 16:00 → MICUSO 17:27 → ENRESERV 18:22 → 7WST 04-08 19:14 → UNDODISIN 04-09 15:57 → 5WST 04-09 16:07 → 3WST 04-09 20:31
PROVIDERS: ADMIT Internal Medicine; ATTEND Internal Medicine
PROC: 0BH17EZ Insertion of Endotracheal Airway into Trachea, Via Natural or Artificial Opening (ICD-10-PCS; principal; 2020-03-20)
PROC: 5A1955Z Respiratory Ventilation, Greater than 96 Consecutive Hours (ICD-10-PCS; 2020-03-20)
PROC: B54MZZA Ultrasonography of Right Upper Extremity Veins, Guidance (ICD-10-PCS; 2020-03-20)
PROC: 05HY33Z Insertion of Infusion Device into Upper Vein, Percutaneous Approach (ICD-10-PCS; 2020-03-20)
DX: A41.89 Other specified sepsis (principal); U07.1 COVID-19; I21.4 Non-ST elevation (NSTEMI) myocardial infarction; J96.01 Acute respiratory failure with hypoxia; J12.89 Other viral pneumonia; R65.21 Severe sepsis with septic shock; K85.90 Acute pancreatitis without necrosis or infection, unspecified; E44.1 Mild protein-calorie malnutrition; M62.82 Rhabdomyolysis; E87.2 Acidosis; E11.9 Type 2 diabetes mellitus without complications; E66.01 Morbid (severe) obesity due to excess calories; R74.0 Nonspecific elevation of levels of transaminase and lactic acid dehydrogenase [LDH]; E87.5 Hyperkalemia; D72.810 Lymphocytopenia; E87.6 Hypokalemia; I10 Essential (primary) hypertension; N39.0 Urinary tract infection, site not specified; Z68.36 Body mass index [BMI] 36.0-36.9, adult
CPT/HCPCS: 36415; 36600; 71045; 76937; 80048; 80053; 80061; 80076; 80305; 80320; 81003; 82375; 82550; 82553; 82728; 82805; 82962; 83036; 83605; 83615; 83880; 84145; 84478; 84484; 85025; 85379; 85384; 86140; 86850; 86900; 86927; 87077; 87186; 87420; 87635; 87804; 93005; 93306; 93970; 94003; 94640; 96365; 97116; 97162; 97166; 97530; 99291; C1725; J0456; J0692; J0696; J1650; J1815; J1940; J2060; J2250; J2270; J2704; J2920; J3010; J3480; J3490; J7050; J7060; P9017; G0480; U0003; U0003-CS